=== PATIENT | female | born 1970 | race Caucasian/White ===

== ENCOUNTER 2016-05-07 19:55 | Observation (INO) | payer OTHER ==
[~2016-05-07] VITALS: Ht 152.4 cm; Wt 90.0 kg
[~2016-05-07 19:55] MED LIST: LORTA5 PO
[2016-05-07 19:59] VITALS: BP 156/72; PULSE 88; RESP 16; TEMP 98.3; O2SAT 97
[2016-05-07 20:06] VITALS: BP 192/126; PULSE 84; RESP 15; TEMP 98.5; O2SAT 98
[2016-05-07 20:25] VITALS: BP 191/88; PULSE 80; RESP 17; O2SAT 100
--- NOTE | 2016-05-07 20:35 | RADRPT ---
EXAM DATE/TIME: 05/07/2016 20:22 [facility] COMPARISON: No previous studies available for comparison. INDICATIONS : Weakness MEDICAL HISTORY : None. SURGICAL HISTORY : Shunt placement ENCOUNTER: Initial ACUITY: 1 day PAIN SCORE: 0/10 LOCATION: Bilateral chest FINDINGS: A single view of the chest demonstrates the lungs to be symmetrically aerated without evidence of mas s, infiltrate or effusion. There is mild compensated cardiomegaly . Osseous structures are intact. CONCLUSION: Mild compensated cardiomegaly otherwise negative. Linden Thomas MD FACR on May 07, 2016 at 20:33 Board Certified Radiologist. This report was verified electronically.
--- NOTE | 2016-05-07 20:41 | RADRPT ---
EXAM DATE/TIME: 05/07/2016 20:23 [facility] COMPARISON: CT BRAIN W/O CONTRAST, May 13, 2013, 11:44. INDICATIONS : Altered mental status. RADIATION DOSE: 42.43 CTDIvol (mGy) MEDICAL HISTORY : Seizures. SURGICAL HISTORY : SERICULTURE TEACHER shunt. ENCOUNTER: Initial ACUITY: 1 day PAIN SCALE: 0/10 LOCATION: cranial TECHNIQUE: Multiple contiguous axial images were obtained of the head. Using automated exposure control and adjustment of the mA and/or kV according to patient size, radiation dose was kept as low as reasonably achievable to obtain optimal diagnostic quality images. FINDINGS: Shunt is seen entering from the right crossing midline. The ventricles are small but unchanged from the comparison study. There is no parenchymal hemorrhage, mass effect or acute infraction. The post erior fossa is unremarkable. Minimal calcifications are seen in the brain stem. Otherwise, the posterior fossa is unremarkable. CONCLUSION: Stable non-contrast axial head CT. Linden Thomas MD FACR on May 07, 2016 at 20:34 Board Certified Radiologist. This report was verified electronically.
--- NOTE | 2016-05-07 20:56 | PD ---
HPI Chief Complaint: Numbness/Tingling Time Seen by Provider: 20:25 Travel History International Travel<30 days: No Contact w/Intl Traveler<30days: No Traveled to known affect area: No History of Present Illness HPI The patient is 46 year old female who presents to the [facility] emergency department with a history of reportedly noticing that she did not feel well earlier this morning. She reports that the onset was just after awakening sometime between 7:30 and 8:30 AM. She reports that she felt lethargic/much sleepier than usual. The patient reports that she was able to go to [facility]. She reports that she did earlier today also have numbness either and one of her arms or both of her arms. She reports that this point she cannot exactly recall. The patient does report having some short-term memory problems related to a history of brain cancer status post resection and obstructive hydrocephalus that is supposed TUGBOAT CAPTAIN shunt placement. According to the record it appears that the patient last had her shunt revised by her neurosurgeon, Dr. Palomo in April 2013. The patient denies at this point having any numbness or tingling to her arms or legs. She denies having any fevers or chills. She denies having any cough or congestion. The patient denies any history of neck pain, chest pain, shortness of breath, abdominal pain, vomiting, diarrhea, urinary symptoms, or other neurologic symptoms. The patient's then arrived at her bedside and reports that he was told by his mother that the patient began to have symptoms earlier in the day of right lower extremity numbness and tingling. The patient then went to take a nap. When she got up from the nap, she then noticed that she had right upper extremity numbness and tingling. He reports that he came home around 7:30 PM, and then noticed that she had slurred speech. All other symptoms have resolved prior to arrival. [facility] Past Medical History Narrative Medical The patient's past medical history is significant for a history of brain carcinoma, diagnosed at 17 years of age, status post radiation therapy, status post TUGBOAT CAPTAIN shunt placement and numerous revisions, most recently according to the record in April 2013. She cannot recall when she last saw Dr. Palomo. She is unsure who her primary care physician is. On reviewing the electronic medical record, the patient does also have a history of headaches and seizure activity. Asthma: No Blood Disorders: No Heart Rhythm Problems: No Cancer: No Cardiovascular Problems: No High Cholesterol: No Chemotherapy: No Chest Pain: No Congestive Heart Failure: No COPD: No Cerebrovascular Accident: No Diminished Hearing: No Endocrine: No Genitourinary: No Headaches: Yes Hypertension: No Immune Disorder: No Musculoskeletal: No Neurologic: Yes (HISTORY OF BRAIN TUMOR - 14 REVISIONS OF TUGBOAT CAPTAIN SHUNT - LAST REVISION [id number] B) Psychiatric: No Reproductive: No Respiratory: No Myocardial Infarction: No Radiation Therapy: Yes Seizures: Yes Sleep Apnea: No Past Surgical History Narrative Surgical The patient's past surgical history is significant for the patient placement and revisions, prior pilonidal cyst resection. Abdominal Surgery: No AICD: No Arteriovenous Shunt: No Body Medical Devices: TUGBOAT CAPTAIN SHUNT Cardiac Surgery: No Ear Surgery: No Endocrine Surgery: No Eye Surgery: No Genitourinary Surgery: No Gynecologic Surgery: No Insulin Pump: No Joint Replacement: No Neurologic Surgery: Yes (PT. HAS A HISTORY OF BRAIN TUMOR - SHRUNK WITH RADIATION - TUGBOAT CAPTAIN SHUNT IN PLAC) Oral Surgery: No Pacemaker: No Thoracic Surgery: No Other Surgery: Yes (10 BRAIN SURGERIES HYDROCEPHALIC WITH SHUNT PILONIDAL CYST NECK CYST) Social History Alcohol Use: No Tobacco Use: No Substance Use: No Allergies-Medications (Allergen,Severity, Reaction): Coded Allergies: No Known Allergies (Verified , 05/07/16) Reported Meds & Prescriptions Reported Meds & Active Scripts Active Reported Lortab 5/325 Tab (Hydrocodone-Acetaminophen) 1 Tab Tab 1 Tab PO Q4 PRN Review of Systems Except as stated in HPI: all other systems reviewed are Neg General / Constitutional: No: Fever Eyes: No: Visual changes HENT: No: Headaches Cardiovascular: No: Chest Pain or Discomfort Respiratory: No: Shortness of Breath Gastrointestinal: No: Abdominal Pain Genitourinary: No: Dysuria Musculoskeletal: No: Pain Skin: No Rash Neurologic: Positive: Weakness, Focal Abnormalities, Headache, Change in Mentation, Slurred Speech, Paresthesia, Sensory Disturbance Psychiatric: No: Depression Endocrine: No: Polydipsia Hematologic/Lymphatic: No: Easy Bruising Physical Exam Narrative General: The patient is a well-developed well-nourished female in no acute distress.. Head and Neck exam: Head is normocephalic atraumatic. Eyes: Pupils are equal round and reactive to light. Nose: Midline septum with pink mucous membranes Mouth: Dentition unremarkable. Moist mucus membranes. Posterior oropharynx is not erythematous. No tonsillar hypertrophy. Uvula midline. Airway patent. Neck: No palpable lymphadenopathy. No nuchal rigidity. No thyromegaly. Cardiovascular: Regular rate and rhythm without murmurs, gallops, or rubs. No pulse deficit to the extremities. Lungs: Clear to auscultation bilaterally. No wheezes, rhonchi, or rales. Abdomen: Soft, without tenderness to palpation in all 4 quadrants of the abdomen. No guarding, rebound, or rigidity. Extremities: No clubbing, cyanosis, or edema. 2+ pulses in all 4 extremities. Back: No spinous process tenderness to palpation. No costovertebral angle tenderness to palpation. Neurologic Exam: Cranial nerves 2-12 were intact on exam. Strength is 5/5 in all 4 extremities. No sensory deficits noted. No dysdiadochokinesis. Good finger to nose and Heel to pedroza bilaterally. Skin Exam: No rash noted. Intact skin that is warm and dry. Data Data Last Documented VS Vital Signs Date Time Temp Pulse Resp B/P Pulse Ox O2 Delivery O2 Flow Rate FiO2 05/07/16 21:40 75 18 150/68 92 Room Air 05/07/16 20:06 98.5 Orders Electrocardiogram (05/07/16 20:13) Complete Blood Count With Diff (05/07/16 20:13) Basic Metabolic Panel (Bmp) (05/07/16 20:13) Ckmb (Isoenzyme) Profile (05/07/16 20:13) Troponin I (05/07/16 20:13) Prothrombin Time / Inr (Pt) (05/07/16 20:13) Act Partial Throm Time (Ptt) (05/07/16 20:13) Urinalysis - C+S If Indicated (05/07/16 20:13) Magnesium (Mg) (05/07/16 20:13) Chest, Single Ap (05/07/16 20:13) Iv Access Insert/Monitor (05/07/16 20:13) Ecg Monitoring (05/07/16 20:13) Oximetry (05/07/16 20:13) Ct Brain W/O Iv Contrast(Rout) (05/07/16 20:16) Shunt Series (05/07/16 ) Aspirin Chew (Aspirin Chew) (05/07/16 22:30) Sodium Chlor 0.9% 1000 Ml Inj (Ns 1000 M (05/07/16 22:30) [place] (05/07/16 22:23) Admit Order (Ed Use Only) (05/07/16 22:31) Labs Laboratory Tests Test 05/07/16 05/07/16 20:15 21:40 White Blood Count 9.0 TH/MM3 Red Blood Count 4.49 MIL/MM3 Hemoglobin 11.6 GM/DL Hematocrit 35.8 % Mean Corpuscular Volume 79.6 FL Mean Corpuscular Hemoglobin 25.7 PG Mean Corpuscular Hemoglobin 32.3 % Concent Red Cell Distribution Width 18.2 % Platelet Count 322 TH/MM3 Mean Platelet Volume 8.9 FL Neutrophils (%) (Auto) 60.3 % Lymphocytes (%) (Auto) 28.9 % Monocytes (%) (Auto) 9.0 % Eosinophils (%) (Auto) 1.1 % Basophils (%) (Auto) 0.7 % Neutrophils # (Auto) 5.4 TH/MM3 Lymphocytes # (Auto) 2.6 TH/MM3 Monocytes # (Auto) 0.8 TH/MM3 Eosinophils # (Auto) 0.1 TH/MM3 Basophils # (Auto) 0.1 TH/MM3 CBC Comment DIFF FINAL Differential Comment Prothrombin Time 10.3 SEC Prothromb Time International 0.9 RATIO Ratio Activated Partial 24.0 SEC Thromboplast Time Sodium Level 140 MEQ/L Potassium Level 3.8 MEQ/L Chloride Level 108 MEQ/L Carbon Dioxide Level 24.0 MEQ/L Anion Gap 8 MEQ/L Blood Urea Nitrogen 7 MG/DL Creatinine 1.02 MG/DL Estimat Glomerular Filtration 58 ML/MIN Rate Random Glucose 93 MG/DL Calcium Level 8.5 MG/DL Magnesium Level 2.1 MG/DL Total Creatine Kinase 41 U/L Troponin I LESS THAN 0.02 NG/ML Urine Color LIGHT-YELLOW Urine Turbidity CLEAR Urine pH 7.0 Urine Specific Cameron 1.003 Urine Protein NEG mg/dL Urine Glucose (UA) NEG mg/dL Urine Ketones NEG mg/dL Urine Occult Blood NEG Urine Nitrite NEG Urine Bilirubin NEG Urine Urobilinogen LESS THAN 2.0 MG/DL Urine Leukocyte Esterase NEG Urine Squamous Epithelial 1 /hpf Cells Microscopic Urinalysis Comment CULT NOT INDICATED MDM Medical Decision Making Medical Screen Exam Complete: Yes Emergency Medical Condition: Yes Medical Record Reviewed: Yes Interpretation(s) Last Impressions Head CT 05/07/162015 Signed Impressions: Service Date/Time: Saturday, May 07, 2016 20:23 - CONCLUSION: Stable non-contrast axial head CT. Linden Thomas MD FACR Chest X-Ray 05/07/162012 Signed Impressions: Service Date/Time: Saturday, May 07, 2016 20:22 - CONCLUSION: Mild compensated cardiomegaly otherwise negative. Linden Thomas MD FACR Shunt Study (Imaging) 05/07/16 0000 Signed Impressions: Service Date/Time: Saturday, May 07, 2016 21:18 - CONCLUSION: Intact shunt. Yevgeniy Milner MD Differential Diagnosis TIA, versus recurrence of brain tumor, versus TUGBOAT CAPTAIN shunt malfunction Narrative Course During the course of the patients emergency department visit, the patients history, examination, and differential diagnosis were reviewed with the patient. The patient had IV access obtained and blood work sent for analysis. The patient was placed with the head of the bed flat. The patient was placed on a farm consultant with oximetry and blood pressure monitoring. The patient was started on normal saline at 75 mL per hour. The patient was provided aspirin 324 mg by mouth [address] scan of the brain was read as negative for acute intracranial bleed by the reading radiologist. The patients laboratory studies were reviewed and remarkable for a white count of 9.0, hemoglobin 11.6, platelets 322 with 9.0 monocytes, BmP is remarkable for chloride of 108, creatinine 1.02, magnesium 2.1, CPK 41, troponin I less than 0.02. PT 10.3, INR 0.9, urinalysis is unremarkable. Radiology studies were reviewed and remarkable for a chest x-ray that shows mild compensated cardiomegaly otherwise negative, CT scan of the brain shows a stable noncontrast axial head CT, shunt imaging shows an intact shunt. The patient will be admitted to the hospital for continued evaluation and treatment, close monitoring for possible TIA. The patients results were discussed with the patient, including the plan of care. I explained that further testing and/ or monitoring is indicated based on the patients history, examination, and/ or laboratory findings. Therefore, I recommended admission for additional evaluation. The patient expressed understanding and was agreeable with this plan. The patient was admitted to the hospital in stable condition and sent to a bed under the care of the [facility]. Physician Communication Physician Communication The patient's case was discussed with Dr. Diamond who did agree to admit the patient for further evaluation and treatment at this time. Diagnosis Primary Impression: Transient neurological symptoms Admitting Information Admitting Physician Requests: Observation Vandana Rahman MD May 07, 2016 20:56
[2016-05-07 21:03] LABS: AUTOMATED NEUTROPHIL # 5.4 TH/MM3 (1.8-7.7); BASOPHIL # 0.1 TH/MM3 (0-0.2); BASOPHIL % 0.7 % (0.0-2.0); EOSINOPHIL # 0.1 TH/MM3 (0-0.4); EOSINOPHIL % 1.1 % (0.0-4.0); HEMATOCRIT 35.8 % (35.0-46.0); HEMO FLAGS DIFF FINAL; LYMPH % 28.9 % (9.0-44.0); LYMPHOCYTE # 2.6 TH/MM3 (1.0-4.8); MEAN CELL VOLUME 79.6 FL (80.0-100.0); MEAN CORPUSCULAR HEMOGLOBIN 25.7 PG (27.0-34.0); MEAN CORPUSCULAR HGB CONC 32.3 % (32.0-36.0); NEUT % 60.3 % (16.0-70.0); PLATELET COUNT 322 TH/MM3 (150-450); RED BLOOD COUNT 4.49 MIL/MM3 (4.00-5.30); RED CELL DISTRIBUTION WIDTH 18.2 % (11.6-17.2)
[2016-05-07 21:14] LABS: INTERNATIONAL NORMALIZED RATIO 0.9 RATIO; PROTHROMBIN TIME - PATIENT 10.3 SEC (9.8-11.6)
[2016-05-07 21:25] LABS: ANION GAP 8 MEQ/L (5-15); BLOOD UREA NITROGEN 7 MG/DL (7-18); CHLORIDE 108 MEQ/L (98-107); GLOMERULAR FILTRATION RATE 58 ML/MIN (>89); MAGNESIUM 2.1 MG/DL (1.5-2.5); POTASSIUM 3.8 MEQ/L (3.5-5.1); SODIUM (NA) 140 MEQ/L (136-145)
[2016-05-07 21:31] LABS: CREATINE KINASE 41 U/L (26-192)
[2016-05-07 21:40] VITALS: BP 150/68; PULSE 75; RESP 18; O2SAT 92
[2016-05-07 22:08] LABS: BLOOD, URINE NEG (NEG); GLUCOSE,URINE NEG (NEG); KETONE, URINE NEG (NEG); NITRITE,URINE NEG (NEG); SQUAMOUS EPITHELIAL CELL URINE 1 /hpf (0-5); URINE COLOR LIGHT-YELLOW (YELLW/STRAW)
[2016-05-07 22:10] LABS: COMMENT (UR) CULT NOT INDICATED; CULTURE IF INDICATED CULT NOT INDICATED
--- NOTE | 2016-05-07 22:12 | RADRPT ---
EXAM DATE/TIME: 05/07/2016 21:18 [facility] COMPARISON: No previous studies available for comparison. INDICATIONS : Headache and numbness of the upper extremities. MEDICAL HISTORY : Seizures SURGICAL HISTORY : Ventriculoperitoneal Shunt ENCOUNTER: Initial ACUITY: 1 day PAIN SCORE: 0/10 LOCATION: Bilateral Head neck,chest,or abdomen FINDINGS: Radiograph of the skull, neck, chest and abdomen performed to evaluate shunt patency. The shunt cath eter is seen entering the right frontal region with its tip in the region of the body of the left lat eral ventricle. The catheter is continuous in its course terminating in the right upper quadrant No catheter disrupti on is identified. The visualized heart, lungs and abdominal structures are intact. CONCLUSION: Intact shunt. Yevgeniy Milner MD on May 07, 2016 at 22:09 Board Certified Radiologist. This report was verified electronically.
[2016-05-07] MEDS ORDERED: ASPIRIN 81 MG CHEW TAB CHEW ONE (22:30)
[2016-05-07 22:39] VITALS: BP 139/74; PULSE 72; RESP 15; O2SAT 99
[2016-05-07] MEDS: SODIUM CHLOR 0.9% 1000 ML INJ 1,000 ML IV SCH (22:39)
[2016-05-08 01:03] VITALS: BP 153/63; PULSE 60; RESP 20; TEMP 97.6; O2SAT 96
[2016-05-08 04:22] VITALS: BP 113/60; PULSE 66; RESP 20; TEMP 97.8; O2SAT 97
[2016-05-08 07:50] VITALS: BP 125/70; PULSE 76; RESP 17; TEMP 98; O2SAT 96
[2016-05-08] MEDS ORDERED: INFLUENZA VIRUS VACCINE (QUADRIVALENT) 0.5 ML SYR IM ONE (09:00)
[2016-05-08] MEDS ORDERED: ASPIRIN 81 MG CHEW TAB PO SCH (09:00)
--- NOTE | 2016-05-08 09:21 | MH ---
cc: ISAIAS LOWE M.D. DATE OF ADMISSION: 05/07/2016 ADMISSION DIAGNOSIS 1. Transient neurological symptoms, possible TIA. 2. History of obstructive hydrocephalus with prior numerous revisions of ventriculoperitoneal shunt. 3. History of benign brain tumor as a teenager, treated with radiation therapy. 4. Prior history of generalized seizure disorder but no seizure in several years. PERTINENT HISTORY This is a 46-year-old white female who came to the emergency room yesterday not feeling well. Her onset occurred some time in the morning after waking and she felt a little more lethargic and sleepier than usual. She also earlier in the day had some numbness in either one or both of her arms. She cannot recall. She was having trouble remembering, but she does mention some short-term memory problems. She has a history of obstructive hydrocephalus since she was around [id number] and had a ventriculoperitoneal shunt put in then. The shunt has been revised numerous times. The last time it was revised was in April [address] Palomo. Her clarified some of her symptoms, that she apparently was having some right lower extremity numbness and tingling and went to take a nap and when she got up from the nap she had some right upper extremity numbness and tingling. He also reported that around 7:30 p.m. she had some slight slurred speech. All her symptoms seemed to resolve prior to arrival to the ED. She was seen by Dr. Rahman in the ED. Her CAT scan was negative but Dr. Rahman was concerned for a TIA and she was admitted for observation and MRI of the brain. She has no complaint of headache, no motor weakness, no nausea, vomiting, no fever, chills or sweats, no other symptoms. PAST MEDICAL HISTORY 1. History of what she states was a benign tumor. She was given radiation therapy around 18-19 years of age. She had a ventriculoperitoneal shunt as mentioned with numerous revisions for hydrocephalus that apparently began at age 11. 2. History of generalized seizures. She took Dilantin for awhile but it sounds like she has been off of that for over 20 years. She denies any heart disease, hypertension, diabetes. Denies any liver or kidney disease, ulcer disease, colon disease. No prior stroke. No thyroid problem. No hypertension. No diabetes. PAST SURGICAL HISTORY 1. As mentioned numerous ventriculoperitoneal shunts. 2. Cyst removed from her neck. 3. Pilonidal cyst. ALLERGIES None. MEDICATIONS She is not on any medication at home. FAMILY HISTORY Her father and mother are living. Her mother is 81 and in very good health. Father is 83. He has had prior stroke and has hypertension. SOCIAL HISTORY She has never smoked, does not use alcohol. 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 REVIEW OF SYSTEMS GENERAL: Denies any fever, chills, sweats. HEENT: No vision problem. No sore throat or runny nose. CARDIOVASCULAR: No chest pain, orthopnea, PND. PULMONARY: No cough, hemoptysis, wheezing. GI: No nausea, vomiting, melena, rectal bleeding. : No dysuria, urgency, frequency. SKIN: Without rash. MUSCULOSKELETAL: Without complaints. NEUROLOGIC: As mentioned. PHYSICAL EXAMINATION GENERAL: A pleasant white female in no distress. She seems to be able to answer questions appropriately. VITAL SIGNS: It should be noted that her BP when she first came in to the ED was quite elevated at 192/126, 191/88. It started coming down and most recent check at 4:22 a.m. was 113/60, respirations 20, pulse 66, temperature 97.8. HEENT: Pupils equal. Sclera non-icteric. Nose without lesion. Mouth without inflammation or lesion. NECK: Without bruit. No adenopathy. No thyromegaly. HEART: Regular rate and rhythm. No murmurs or gallops. LUNGS: Clear. ABDOMEN: Soft, nontender, no masses. EXTREMITIES: No edema. Pulses palpated. NEUROLOGIC: She appears oriented. Motor strength is symmetrical. No definite sensory deficits. [id number] testing normal. I did not attempt to walk her. LABORATORY DATA White count is normal at 9.0, hemoglobin 11.6, hematocrit 35.8, platelets 322,000. BMP: Sodium 140, potassium 3.8, chloride 108, CO2 24, BUN 7, creatinine 1.02, GFR 58, glucose 93, calcium 8.5, magnesium 2.1. Troponin less than 0.02. IMAGING DATA A CT brain scan showed what was reported as stable findings. The shunt was seen. The ventricles were not noted to be enlarged. Chest x-ray showed mild compensated cardiomegaly, otherwise negative. A shunt study showed intact shunt. ASSESSMENT As noted. PLAN The patient has been admitted and MRI of the brain has been ordered with MRA and carotid ultrasound. She has been put on aspirin 81 mg a day. No further recommendation at this time. MD COCO Giles/NAYANA /7:22 AM /9:06 AM
--- NOTE | 2016-05-08 09:24 | RADRPT ---
EXAM DATE/TIME: 05/08/2016 08:32 [facility] COMPARISON: No previous studies available for comparison. INDICATIONS : Transient neurologic symptoms. MEDICAL HISTORY : History of brain tumor. Hyocephalic. Seizures. Dizziness. Headaches. SURGICAL HISTORY : 14 Revision of MGMT SPECIALIST shunt. 10 Brain surgeries. Pilonidal cyst. Neck cyst. ENCOUNTER: Initial ACUITY: 1 day PAIN SCORE: 0/10 LOCATION: Bilateral neck PEAK SYSTOLIC VELOCITIES (cm/sec): ICA/CCA RATIO: Right: 1.2 Left: 1.0 ICA: Right: 97 Left: 102 CCA: Right: 84 Left: 104 ECA: Right: 111 Left: 116 VERTEBRAL: Right: 51 antegrade Left: 60 antegrade Elevated flow velocities and ICA/CCA ratios have been found to correlate with increased degrees of vessel stenosis, calculated as percentage of diameter relative to a normal segment of distal ICA/CCA FINDINGS: Ultrasound of the carotid arteries was performed bilaterally using real-time Doppler and color Dopple r imaging. Examination of the right carotid artery demonstrates mild fibrous plaque within the bifurcation. No w aveform abnormalities are identified and no spectral broadening is seen. Examination of the left pham tid artery demonstrates mild fibrous plaque within the bulb. No waveform abnormalities are identified and no spectral broadening is seen. There is antegrade flow in both vertebral arteries. CONCLUSION: No evidence of hemodynamically significant lesion. Gray Valentin MD on May 08, 2016 at 9:22 Board Certified Radiologist. This report was verified electronically.
[2016-05-08 11:45] VITALS: BP 138/64; PULSE 84; RESP 18; TEMP 98; O2SAT 97
[2016-05-08] MEDS: SODIUM CHLOR 0.9% 1000 ML INJ 1,000 ML IV SCH (11:50)
--- NOTE | 2016-05-08 12:58 | RADRPT ---
EXAM DATE/TIME: 05/08/2016 12:04 [facility] COMPARISON: No previous studies available for comparison. INDICATIONS : Check shunt valve setting pre- MRI MEDICAL HISTORY : None. SURGICAL HISTORY : None. ENCOUNTER: Initial ACUITY: 1 day PAIN SCORE: 0/10 LOCATION: Skull FINDINGS: A two view examination of the skull demonstrates no evidence of fracture. The pituitary fossa is nor mal in configuration. No MRI incompatible foreign body is identified.. There is a ENRICHMENT ASSISTANT. shunt in place . The shunt setting appears to be at 70. CONCLUSION: No MRI incompatible foreign body is identified. Shunt setting appears to be at about 70. Frederick Tay MD on May 08, 2016 at 12:52 Board Certified Radiologist. This report was verified electronically.
--- NOTE | 2016-05-08 13:13 | RADRPT ---
EXAM DATE/TIME: 05/08/2016 12:38 [facility] COMPARISON: No previous studies available for comparison. INDICATIONS : TIA. Right sided body numbness. MEDICAL HISTORY : Seizures. Hydrocephalis. Brain mass. SURGICAL HISTORY : REFRACTORY BRICKLAYER shunt placement with multiple revisions. Right femur. ENCOUNTER: Subsequent ACUITY: 2 day PAIN SCORE: 0/10 LOCATION: cranial Please note a normal MRA of the brain does not entirely exclude the possibility of a small aneurysm, nor the possibility of distal intracranial vessel disease. TECHNIQUE: 3D time of flight MRA was performed. Source images, multiplanar STS MIP, and 3D volume MIP reconstru ctions were reviewed. FINDINGS: There is excellent visualization of the major intracranial arteries out to the second-order branch ve ssels. There is no evidence for aneurysm, vessel truncation or stenosis, and no evidence for vascula r malformation. There is a small patent right posterior communicating artery. CONCLUSION: Normal examination for a patient of this age. Frederick Tay MD on May 08, 2016 at 13:10 Board Certified Radiologist. This report was verified electronically.
--- NOTE | 2016-05-08 13:56 | RADRPT ---
EXAM DATE/TIME: 05/08/2016 12:38 [facility] COMPARISON: CT BRAIN W/O CONTRAST, May 07, 2016, 20:23. INDICATIONS : TIA. Right side body weakness. CONTRAST: 19 cc Omniscan (gadodiamide) IV MEDICAL HISTORY : Seizures. Hydrocephalus. Brain mass. SURGICAL HISTORY : PROCESS LINE OPERATOR shunt placement with multiple revisions. Right femur. ENCOUNTER: Subsequent ACUITY: 2 day PAIN SCORE: 0/10 LOCATION: cranial TECHNIQUE: Multiplanar, multisequence MRI of the brain was performed both prior to and following the administrat ion of paramagnetic contrast. FINDINGS: CEREBRUM: The ventricles are decompressed. There is a right ventricular shunt in place.. No evidence of midlin e shift, mass lesion, hemorrhage or acute infarction. No extraaxial fluid collections are seen. The pituitary gland and suprasellar cistern are normal in configuration. WHITE MATTER: No significant signal abnormalities are seen in the white matter. There are postsurgical changes rela donald to PROCESS LINE OPERATOR shunt. POSTERIOR FOSSA: The cerebellum and brainstem are intact. The 4th ventricle is midline. The cerebellopontine angle is unremarkable. The cerebellar tonsils are normal in position. DIFFUSION IMAGING: No focal areas of restricted diffusion are seen. No evidence of acute infarction. EXTRACRANIAL: The visualized portions of the orbits and paranasal sinuses are unremarkable. POST-CONTRAST: No abnormal areas of parenchymal or dural enhancement. No evidence of blood-brain barrier breakdown. No enhancing mass occupying lesions are demonstrated. CONCLUSION: Unremarkable MRI of the brain in this patient with a right-sided PROCESS LINE OPERATOR shunt. Frederick Tay MD on May 08, 2016 at 13:49 Board Certified Radiologist. This report was verified electronically.
--- NOTE | 2016-05-08 15:18 | RADRPT ---
EXAM DATE/TIME: 05/08/2016 14:04 [facility] COMPARISON: SHUNT SERIES, May 07, 2016, 21:18. SCREENING PRE MR SKULL LTD, May 08, 2016, 12:04. INDICATIONS : Check shunt settings post MRI. 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 The post shunt pressure setting is approximately 90 CONCLUSION: There appears to be a slight increase in the pressure setting on the post MRI images. Frederick Tay MD on May 08, 2016 at 15:09 Board Certified Radiologist. This report was verified electronically.
[2016-05-08 15:41] VITALS: BP 135/66; PULSE 82; RESP 18; TEMP 98.2; O2SAT 95
[2016-05-08] MEDS ORDERED: GADODIAMIDE PF 287 MG/ML 20 ML VIAL (for RAD MRI) IV ONE (17:57)
--- NOTE | 2016-05-08 19:30 | EKG ---
Date Performed: 05/07/2016 Time Performed: 20:40:47 PTAGE: 46 years EKG: Sinus rhythm WITH SINUS ARRHYTHMIA NORMAL ECG PREVIOUS TRACING : 07/28/1999 07.49 DOCTOR: Talib Antoine Interpretating Date/Time 05/08/2016 19:27:37
[2016-05-08] MEDS ORDERED: Aspirin Chew PO (19:39)
--- NOTE | 2016-05-08 19:44 | HHI.PR ---
Subjective Remarks No new complaints. requesting discharge to home this evening. denies numbness or tingling at extremities Objective Vitals Vital Signs Date Time Temp Pulse Resp B/P Pulse Ox O2 Delivery O2 Flow Rate FiO2 05/08/16 15:41 98.2 82 18 135/66 95 05/08/16 11:45 98.0 84 18 138/64 97 05/08/16 07:50 98.0 76 17 125/70 96 05/08/16 04:22 97.8 66 20 113/60 97 05/08/16 01:03 97.6 60 20 153/63 96 05/07/16 22:39 72 15 139/74 99 Room Air 05/07/16 21:40 75 18 150/68 92 Room Air 05/07/16 20:25 80 17 191/88 100 Room Air 05/07/16 20:06 98.5 84 15 192/126 98 05/07/16 20:05 16 98 05/07/16 19:59 98.3 88 16 156/72 97 Room Air Result Diagram: 05/07/16201405/07/162014 Imaging Last Impressions Skull X-Ray 05/08/16 0000 Signed Impressions: Service Date/Time: Sunday, May 08, 2016 14:04 - CONCLUSION: There appears to be a slight increase in the pressure setting on the post MRI images. Frederick Tay MD Head Magnetic Resonance Angiography 05/08/16 0000 Signed Impressions: Service Date/Time: Sunday, May 08, 2016 12:38 - CONCLUSION: Normal examination for a patient of this age. Frederick Tay MD Carotid Artery Ultrasound 05/08/16 0000 Signed Impressions: Service Date/Time: Sunday, May 08, 2016 08:32 - CONCLUSION: No evidence of hemodynamically significant lesion. 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 Frederick Tay MD Head CT 05/07/16 2016 Signed Impressions: Service Date/Time: Saturday, May 07, 2016 20:23 - CONCLUSION: Stable non-contrast axial head CT. Linden Thomas MD FACR Chest X-Ray 05/07/162012 Signed Impressions: Service Date/Time: Saturday, May 07, 2016 20:22 - CONCLUSION: Mild compensated cardiomegaly otherwise negative. Linden Thomas MD FACR Shunt Study (Imaging) 05/07/16 0000 Signed Impressions: Service Date/Time: Saturday, May 07, 2016 21:18 - CONCLUSION: Intact shunt. Yevgeniy Milner MD Objective Remarks GENERAL: This is a well-nourished, well-developed patient, in no apparent distress. CARDIOVASCULAR: Regular rate and rhythm without murmurs, gallops, or rubs. RESPIRATORY: Clear to auscultation. Breath sounds equal bilaterally. No wheezes , rales, or rhonchi. GASTROINTESTINAL: Abdomen soft, non-tender, nondistended. Normal active bowel sounds MUSCULOSKELETAL: Extremities without clubbing, cyanosis, or edema. NEURO: Alert & Oriented x4 to person, place, time, situation. Moves all ext x4 A/P Problem List: (1) Transient neurological symptoms Status: Acute Plan: - MRI brain (05/08/16) --> NO acute findings - carotid US (05/08/16) --> no hemodynamically significant stenosis - MRA brain (05/08/16) --> NO acute findings - f/u with PCP, Dr. Alanis in 1 week - f/u with Neurosurgeon, Dr. Palomo in [address] Palomo placed previous shunt. - f/u with Neurology, Dr. Elijah Subramanian, physician known to family - ASA 81mg PO daily - see discharge orders Jose G Restrepo DO May 08, 2016 19:44
[2016-05-08 20:39] VITALS: BP 131/69; PULSE 75; RESP 20; TEMP 97.7; O2SAT 98
[2016-05-09] MEDS ORDERED: ASPI81CH7 PO (09:27)
[2016-05-29] MEDS ORDERED: QUADMIS (14:03)
[2016-05-29] MEDS ORDERED: WHEEMIS3 (14:03)
[2016-05-29] MEDS ORDERED: COMMODE 3-IN-11 MIS (14:03)
[2016-06-08] MEDS ORDERED: DEPA500T3 PO (09:31)
[2016-06-08] MEDS ORDERED: APIX5TAB PO (09:31)
== END 2016-05-09 00:04 | disposition home or self-care (01) ==
LOC: NEPE 19:55 → NEDA 22:33 → NEPHCDU 05-08 01:06
PROVIDERS: ADMIT Hospitalist; ATTEND Hospitalist
DX: R29.90 Unspecified symptoms and signs involving the nervous system (principal); R53.83 Other fatigue; G91.1 Obstructive hydrocephalus; Z98.2 Presence of cerebrospinal fluid drainage device; Z85.841 Personal history of malignant neoplasm of brain; R20.2 Paresthesia of skin; R47.81 Slurred speech; R56.9 Unspecified convulsions; I51.7 Cardiomegaly; Z79.82 Long term (current) use of aspirin
CPT/HCPCS: 70250; 70450; 70544; 70553; 71010; 72040; 74000; 80048; 81001; 82550; 83735; 84484; 85025; 85610; 85730; 93005; 93880; 99285; A9579; G0378; J7030; 70552

== ENCOUNTER 2016-05-09 09:14 | Inpatient (IN) | payer OTHER ==
[2016-05-09] VITALS (11 sets, daily range): BP systolic 117–142; BP diastolic 60–77; PULSE 58–75; RESP 16–18; TEMP 98.3–98.8; O2SAT 96–99
[~2016-05-09] VITALS: Ht 149.9 cm; Wt 65.0 kg
[~2016-05-09 09:14] MED LIST changes: +Aspirin Chew PO; -LORTA5 PO
--- NOTE | 2016-05-09 09:19 | PD ---
HPI Chief Complaint: right-sided weakness Time Seen by Provider: 09:19 Travel History International Travel<30 days: No Contact w/Intl Traveler<30days: No Traveled to known affect area: No History of Present Illness HPI 46-year-old female came to the emergency room brought by EMS for right upper and lower extremity weakness and facial droop on the right side. Her brother is here and says that patient was admitted in the hospital 2 days ago for similar symptoms and was discharged yesterday. He saw her last at 11 PM because her brought her to his house since her thought she was still weak. 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 She was talking normal at that time and that was the last time he saw her normal. Her probably put her to bed at 11:30 to 12 and she was still her baseline at that point. She woke up at 3 in the morning and her noticed that she was stumbling and weak on the right side. However patient refused to come to the emergency room at that point. This morning when she was awake her weakness had worsened and her called 911. Patient is not complaining of any pain. She has a dysarthria. Vital signs are stable otherwise. 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 She has had multiple revisions of the SECRETARY OF STATE shunt since then. Usually when the shunt is malfunctioning she presents with drowsiness and lethargy. [facility] Past Medical History Narrative Medical List of her past medical history is reviewed from the nursing note. Asthma: No Blood Disorders: No Heart Rhythm Problems: No Cancer: No Cardiovascular Problems: No High Cholesterol: No Chemotherapy: No Chest Pain: No Congestive Heart Failure: No COPD: No Cerebrovascular Accident: No Diminished Hearing: No Endocrine: No Genitourinary: No Headaches: Yes Hypertension: No Immune Disorder: No Implanted Vascular Access Dvce: Yes Musculoskeletal: No Neurologic: Yes (HISTORY OF BRAIN TUMOR - 14 REVISIONS OF SECRETARY OF STATE SHUNT - LAST REVISION [id number] B) Psychiatric: No Reproductive: No Respiratory: No Myocardial Infarction: No Radiation Therapy: Yes Seizures: Yes Sleep Apnea: No Past Surgical History Abdominal Surgery: No AICD: No Arteriovenous Shunt: No Body Medical Devices: SECRETARY [employer] SHUNT Cardiac Surgery: No Ear Surgery: No Endocrine Surgery: No Eye Surgery: No Genitourinary Surgery: No Gynecologic Surgery: No Insulin Pump: No Joint Replacement: No Neurologic Surgery: Yes (PT. HAS A HISTORY OF BRAIN TUMOR - SHRUNK WITH RADIATION - SECRETARY OF STATE SHUNT IN PLAC) Oral Surgery: No Pacemaker: No Thoracic Surgery: No Other Surgery: Yes (10 BRAIN SURGERIES HYDROCEPHALIC WITH SHUNT PILONIDAL CYST NECK CYST) Social History Alcohol Use: No Tobacco Use: No Substance Use: No Allergies-Medications (Allergen,Severity, Reaction): Coded Allergies: No Known Allergies (Verified , 05/07/16) Comments No known drug allergies. Reported Meds & Prescriptions Reported Meds & Active Scripts Active Reported Aspirin Children's (Aspirin) 81 Mg Chew 81 Mg PO DAILY Narrative Medication List of her home medications reviewed from the nursing note. Review of Systems Except as stated in HPI: all other systems reviewed are Neg Physical Exam Narrative GENERAL: Awake, alert, moderate distress SKIN: Warm and dry. HEAD: Atraumatic. Normocephalic. EYES: Pupils equal and round. No scleral icterus. No injection or drainage. ENT: No nasal bleeding or discharge. Dry mucous membrane, poor dentition, dry lips, halitosis NECK: Trachea midline. No JVD. CARDIOVASCULAR: Regular rate and rhythm. No murmur appreciated. RESPIRATORY: No accessory muscle use. Clear to auscultation. Breath sounds equal bilaterally. GASTROINTESTINAL: Abdomen soft, non-tender, nondistended. Hepatic and splenic margins not palpable. MUSCULOSKELETAL: No obvious deformities. No clubbing. No cyanosis. No edema. NEUROLOGICAL: Awake and alert. Right facial droop, right upper extremity weakness with strength of 3 out of 5, right lower extremity weakness strength 2 out of 5. Left upper and lower extremity strength is 4 out of 5. Right upper extremity ataxia on finger-nose test. Mild dysarthria. NIH stroke score of 8. PSYCHIATRIC: Appropriate mood and affect; insight and judgment normal. Data Data Last Documented VS Vital Signs Date Time Temp Pulse Resp B/P Pulse Ox O2 Delivery O2 Flow Rate FiO2 05/09/16 11:10 Room Air 05/09/16 11:00 58 16 119/60 98 05/09/16 10:31 98.6 Orders Electrocardiogram (05/09/16 09:30) Prothrombin Time / Inr (Pt) (05/09/16 09:30) Act Partial Throm Time (Ptt) (05/09/16 09:30) Complete Blood Count With Diff (05/09/16 09:30) Basic Metabolic Panel (Bmp) (05/09/16 09:30) Creatine Kinase (Cpk) (05/09/16 09:30) Drug Screen, Random Urine (05/09/16 09:30) Troponin I (05/09/16 09:30) Urinalysis - C+S If Indicated (05/09/16 09:30) Ct Brain W/O Iv Contrast(Rout) (05/09/16 09:30) Chest, Single Ap (05/09/16 09:30) Ecg Monitoring (05/09/16 09:30) Iv Access Insert/Monitor (05/09/16 09:30) Oximetry (05/09/16 09:30) Sodium Chloride 0.9% Flush (Ns Flush) (05/09/16 09:30) Sodium Chlorid 0.9% 500 Ml Inj (Ns 500 M (05/09/16 09:30) Mri Brain W&W/O Contrast (05/09/16 ) Skull, One View (05/09/16 ) Skull, One View (05/09/16 ) Admit Order (Ed Use Only) (05/09/16 11:12) Labs Laboratory Tests Test 05/09/16 05/09/16 09:30 10:02 Urine Opiates Screen NEG Urine Barbiturates Screen NEG Urine Amphetamines Screen NEG Urine Benzodiazepines Screen NEG Urine Cocaine Screen NEG Urine Cannabinoids Screen NEG White Blood Count 8.8 TH/MM3 Red Blood Count 4.33 MIL/MM3 Hemoglobin 11.0 GM/DL Hematocrit 34.5 % Mean Corpuscular Volume 79.7 FL Mean Corpuscular Hemoglobin 25.5 PG Mean Corpuscular Hemoglobin 31.9 % Concent Red Cell Distribution Width 18.2 % Platelet Count 296 TH/MM3 Mean Platelet Volume 8.9 FL Neutrophils (%) (Auto) 69.8 % Lymphocytes (%) (Auto) 21.0 % Monocytes (%) (Auto) 7.7 % Eosinophils (%) (Auto) 0.7 % Basophils (%) (Auto) 0.8 % Neutrophils # (Auto) 6.1 TH/MM3 Lymphocytes # (Auto) 1.8 TH/MM3 Monocytes # (Auto) 0.7 TH/MM3 Eosinophils # (Auto) 0.1 TH/MM3 Basophils # (Auto) 0.1 TH/MM3 CBC Comment DIFF FINAL Differential Comment Prothrombin Time 10.2 SEC Prothromb Time International 0.9 RATIO Ratio Activated Partial 20.3 SEC Thromboplast Time Sodium Level 139 MEQ/L Potassium Level 4.2 MEQ/L Chloride Level 107 MEQ/L Carbon Dioxide Level 23.0 MEQ/L Anion Gap 9 MEQ/L Blood Urea Nitrogen 9 MG/DL Creatinine 0.91 MG/DL Estimat Glomerular Filtration 66 ML/MIN Rate Random Glucose 88 MG/DL Calcium Level 8.5 MG/DL Total Creatine Kinase 41 U/L Troponin I LESS THAN 0.02 NG/ML MDM Medical Decision Making Medical Screen Exam Complete: Yes Emergency Medical Condition: Yes Medical Record Reviewed: Yes Interpretation(s) Twelve-lead EKG was reviewed by me. Normal sinus rhythm, left axis deviation, bradycardia, nonspecific ST-T wave changes. Heart rate of 56 bpm. Differential Diagnosis CVA, brain tumor, hemorrhagic stroke, shunt malfunctioning. Narrative Course 10:[address] is negative. I spoke with Dr. Echevarria from neurology. Listening to the current presentation and the recent previous hospitalization he thought that patient qualifies for a repeat MRI with and without contrast which has been ordered. Chemistry is pending. But rest of the blood test results are back and within normal limit. Patient will require hospitalization again. I have kept her brother and her who joined us later informed and let them know about the plan. Her recurrent presentation is baffling to me given completely normal MRI with and without contrast, MRA, ultrasound of the carotids and shunt study that was done just 2 days ago. However her presentation and unilateral weakness is very concerning and is CVA until proven otherwise. I have asked Dr. Echevarria to come and see the patient as well in the emergency room. Since she was last seen normal at 11:30 last night before going to bed the onset cannot be determined but certainly longer than 4 and half hours and hence patient is not a TPA candidate. Procedures EKG Prior to Arrival: No Physician Communication Physician Communication Dr. Echevarria Diagnosis Primary Impression: CVA (cerebral vascular accident) Qualified Code: I63.9 - Cerebrovascular accident (CVA), unspecified mechanism Admitting Information Admitting Physician Requests: Admit Nena Meza MD May 09, 2016 09:19
[2016-05-09] MEDS ORDERED: ASPI81CH7 PO (09:27)
[2016-05-09] MEDS ORDERED: SODIUM CHLORIDE 0.9% FLUSH 5 ML FLUSH IVF PRN (09:30)
[2016-05-09] MEDS ORDERED: SODIUM CHLORID 0.9% 500 ML INJ 500 ML IV ONE (09:30)
--- NOTE | 2016-05-09 10:06 | RADRPT ---
EXAM DATE/TIME: 05/09/2016 09:36 [facility] COMPARISON: MRI BRAIN W & W/O CONTRAST, May 08, 2016, 12:38. CT BRAIN W/O CONTRAST, May 07, 2016, 20:23 . INDICATIONS : Right arm and leg weakness since 3 am. RADIATION DOSE: 56.35 CTDIvol (mGy) MEDICAL HISTORY : Seizures. History of brain tumor decreased with radiation. 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 Using automated exposure control and adj ustment of the mA and/or kV according to patient size, radiation dose was kept as low as reasonably a chievable to obtain optimal diagnostic quality images. FINDINGS: CEREBRUM: The ventricles are are small in shunt and stable. Shunt catheter enters the right high convexity ante rior parietal bone and there may be an abandoned shunt ostomy in the posterior high convexity right p arietal bone. No evidence of midline shift, mass lesion, hemorrhage or acute infarction. Stable area encephalomalacia changes in the anterior high convexity left parietal lobe representing old infarct or prior region of radiosurgery. No extra-axial fluid collections are seen. POSTERIOR FOSSA: The cerebellum and brainstem are intact. The 4th ventricle is midline. The cerebellopontine angle i s unremarkable. EXTRACRANIAL: The visualized portion of the orbits is intact. SKULL: The calvaria is intact. No evidence of skull fracture. Stable endosteal prominence predominantly adilia ng the right high convexity parietal bone. CONCLUSION: 1. Stable examination with focal encephalomalacia in the high left convexity anterior parietal lobe c haracteristic of an old infarct or radiosurgery bed. 2. Stable position of shunt tubing which enters the right high convexity anterior parietal bone. Ve ntricles remain small but stable. 3. Nothing acute. Moris Briggs MD on May 09, 2016 at 9:47 Board Certified Radiologist. This report was verified electronically.
[2016-05-09 10:15] LABS: AUTOMATED NEUTROPHIL # 6.1 TH/MM3 (1.8-7.7); BASOPHIL # 0.1 TH/MM3 (0-0.2); BASOPHIL % 0.8 % (0.0-2.0); EOSINOPHIL # 0.1 TH/MM3 (0-0.4); EOSINOPHIL % 0.7 % (0.0-4.0); HEMATOCRIT 34.5 % (35.0-46.0); HEMO FLAGS DIFF FINAL; LYMPHOCYTE # 1.8 TH/MM3 (1.0-4.8); MEAN CELL VOLUME 79.7 FL (80.0-100.0); MEAN CORPUSCULAR HEMOGLOBIN 25.5 PG (27.0-34.0); MEAN CORPUSCULAR HGB CONC 31.9 % (32.0-36.0); MONO % 7.7 % (0.0-8.0); NEUT % 69.8 % (16.0-70.0); PLATELET COUNT 296 TH/MM3 (150-450); RED BLOOD COUNT 4.33 MIL/MM3 (4.00-5.30); RED CELL DISTRIBUTION WIDTH 18.2 % (11.6-17.2); WHITE BLOOD COUNT 8.8 TH/MM3 (4.0-11.0)
[2016-05-09 10:28] LABS: INTERNATIONAL NORMALIZED RATIO 0.9 RATIO; PROTHROMBIN TIME - PATIENT 10.2 SEC (9.8-11.6)
[2016-05-09 10:29] LABS: APTT (PATIENT) 20.3 SEC (24.3-30.1)
[2016-05-09 10:48] LABS: ANION GAP 9 MEQ/L (5-15); BLOOD UREA NITROGEN 9 MG/DL (7-18); CHLORIDE 107 MEQ/L (98-107); GLOMERULAR FILTRATION RATE 66 ML/MIN (>89); POTASSIUM 4.2 MEQ/L (3.5-5.1); SODIUM (NA) 139 MEQ/L (136-145)
[2016-05-09 10:50] LABS: CREATINE KINASE 41 U/L (26-192)
--- NOTE | 2016-05-09 11:06 | RADRPT ---
EXAM DATE/TIME: 05/09/2016 10:18 [facility] COMPARISON: CHEST SINGLE AP, May 07, 2016, 20:22. 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 The lungs are clear. The costophrenic angles are clear. The patient has a ri ght internal jugular central line in place with its tip overlying the right atrium. There appears to be a second right internal jugular central line. This has a somewhat more wavy course but appears t o still be within the SVC. CONCLUSION: Two right internal jugular central lines as described above. Yevgeniy Carrera MD on May 09, 2016 at 10:53 Board Certified Radiologist. This report was verified electronically.
[2016-05-09] MEDS ORDERED: SODIUM CHLORIDE 0.9% FLUSH 5 ML FLUSH FLUSH PRN (11:30)
[2016-05-09] MEDS ORDERED: ACETAMINOPHEN 325 MG TAB PO PRN (11:30)
[2016-05-09] MEDS ORDERED: MAGNESIUM HYDROXIDE SUSP 30 ML CUP PO PRN (11:30)
[2016-05-09] MEDS ORDERED: NALOXONE HCL 0.4 MG/ML AMP IV PRN (11:30)
[2016-05-09] MEDS ORDERED: DEXT 5%-NACL 0.45% 1000 ML INJ 1,000 ML IV SCH (11:30)
[2016-05-09] MEDS ORDERED: BISACODYL 10 MG SUPP PR PRN (11:30)
[2016-05-09] MEDS ORDERED: ONDANSETRON HCL 4 MG/2 ML VIAL IVP PRN (11:30)
[2016-05-09 11:57] LABS: BLOOD, URINE NEG (NEG); COMMENT (UR) CATH-CULT NOT IND; CULTURE IF INDICATED CATH CULTURE NOT IND; GLUCOSE,URINE NEG (NEG); KETONE, URINE NEG (NEG); NITRITE,URINE NEG (NEG); PH, URINE 6.5 (5.0-8.5); SQUAMOUS EPITHELIAL CELL URINE 5 /hpf (0-5); URINE COLOR LIGHT-YELLOW (YELLW/STRAW)
[2016-05-09 12:11] LABS: AMPHETAMINE, URINE NEG (NEG); BARBITURATES, URINE NEG (NEG); COCAINE, URINE NEG (NEG)
--- NOTE | 2016-05-09 12:19 | HHI.HP ---
HPI Service [facility] Primary Care Physician Davion Galaviz MD Admission Diagnosis CVA Chief Complaint: right sided weakness Travel History International Travel<30 Days: No Contact w/Intl Traveler <30 Da: No Traveled to Known Affected Are: No History of Present Illness Patient has distant history of benign brain tumor. Patient was given radiation therapy around age 19. 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 Patient was admitted to my service yesterday with complaint of numbness in either both or one of her arms. Patient was unable to recall exactly. Patient also complained of yesterday having right lower extremity numbness and tingling and then right upper extremity numbness and tingling. Patient also complained of some slurred speech occurring the evening of May 07. All of the patient' s symptoms had resolved prior to her arrival to the ER yesterday. Patient underwent extensive workup yesterday including CT brain, MRI brain, MRA brain, bilateral carotid ultrasound. All of these studies were negative and the patient was eager for discharge yesterday evening. I saw the patient yesterday evening at approximately 8:30 PM at which time she appeared neurologically intact. Discharge orders were written. This morning the patient's tells me that Ms. Marc was unable to ambulate prior to discharge from [place] and had to be taken to her car by a wheelchair. However , I was not contacted for this. Patient was then brought from the hospital to the home of her [id number] who is an EMT. Patient's [id number]-kio was in the room this morning. He reported to me that he did a brief neurological examination last night and found no focal deficits. Patient's reports that around 3 AM Ms. Marc was having difficulty moving her right arm and right leg and required assistance getting to the bathroom. When patient awoke this morning, her right sided weakness persisted, so patient was brought back to the [facility] ER. Case has been discussed between the ER physician Dr. Meza and Neurology, Dr. Echevarria. Neurology requests repeat MRI of the brain. At the time of my visit with has some dysarthria and right sided weakness. Pt will be admitted to [facility] for further evaluation and treatment. Review of Systems Constitutional: DENIES: Diaphoretic episodes, Fatigue, Fever, Weight gain, Weight loss, Chills, Dizziness, Change in appetite, Night Sweats Endocrine: DENIES: Heat/cold intolerance, Polydipsia, Polyuria, Polyphagia Eyes: DENIES: Blurred vision, Diplopia, Eye inflammation, Eye pain, Vision loss , Photosensitivity, Double Vision Ears, nose, mouth, throat: DENIES: Tinnitus, Hearing loss, Vertigo, Nasal discharge, Oral lesions, Throat pain, Hoarseness, Ear Pain, Running Nose, Epistaxis, Sinus Pain, Toothache, Odynophagia Respiratory: DENIES: Apneas, Cough, Snoring, Wheezing, Hemoptysis, Sputum production, Shortness of breath Cardiovascular: DENIES: Chest pain, Palpitations, Syncope, Dyspnea on Exertion , PND, Lower Extremity Edema, Orthopnea, Claudication Gastrointestinal: DENIES: Abdominal pain, Black stools, Bloody stools, BRB per rectum, Constipation, Diarrhea, GERD, Nausea, Reflux, Vomiting, Difficulty Swallowing, Anorexia Genitourinary: DENIES: Dysmenorrhea, Dyspareunia, Sexual dysfunction, Urinary frequency, Urinary incontinence, Urgency, Hematuria, Dysuria, Nocturia Musculoskeletal: DENIES: Joint pain, Muscle aches, Stiffness, Joint Swelling, Back pain, Neck pain Integumentary: DENIES: Abnormal pigmentation, Pruritus, Rash, Nail changes, Breast masses, Breast skin changes, Nipple discharge Hematologic/lymphatic: DENIES: Bruising, Lymphadenopathy Immunologic/allergic: DENIES: Eczema, Urticaria Neurologic: COMPLAINS OF: Abnormal gait, Localized weakness, DENIES: Headache , Paresthesias, Seizures, Speech Problems, Tremor, Poor Balance Psychiatric: DENIES: Anxiety, Confusion, Mood changes, Depression, Hallucinations, Agitation, Suicidal Ideation, Homicidal Ideation, Delusions, History of Bipolar, History of Schizophrenia Past Family Social History Past Medical History 1) h/o benign brain tumor - s/p radiation therapy - s/p VPS with many revisions for hydrocephalus - last revision of VPS was April [address] Palomo 2) generalized seizures - pt reports that he previously took dilantin, but NOT for the last 20 years Past Surgical History 1) Ventriculoperitoneal shunt with many revisions - last VPS revision [address] 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 SKIN: No rashes, ecchymoses or lesions. Cool and dry. HEAD: Atraumatic. Normocephalic. No temporal or scalp tenderness. EYES: Pupils equal round and reactive. Extraocular motions intact. No scleral icterus. No injection or drainage. ENT: Nose without bleeding, purulent drainage or septal hematoma. Throat without erythema, tonsillar hypertrophy or exudate. Uvula midline. Airway patent. NECK: Trachea midline. No JVD or lymphadenopathy. Supple, nontender, no meningeal signs. CARDIOVASCULAR: Regular rate and rhythm without murmurs, gallops, or rubs. RESPIRATORY: Clear to auscultation. Breath sounds equal bilaterally. No wheezes , rales, or rhonchi. GASTROINTESTINAL: Abdomen soft, non-tender, nondistended. No hepato-splenomegaly , or palpable masses. No guarding. MUSCULOSKELETAL: Extremities without clubbing, cyanosis, or edema. No joint tenderness, effusion, or edema noted. No calf tenderness. Negative Homans sign bilaterally. NEUROLOGICAL: Awake and alert. Cranial nerves II through XII intact. Motor and sensory grossly within normal limits. Five out of 5 muscle strength in all muscle groups. Normal speech. Laboratory Laboratory Tests Test 05/09/16 05/09/16 10:02 11:29 White Blood Count 8.8 Red Blood Count 4.33 Hemoglobin 11.0 Hematocrit 34.5 Mean Corpuscular Volume 79.7 Mean Corpuscular Hemoglobin 25.5 Mean Corpuscular Hemoglobin 31.9 Concent Red Cell Distribution Width 18.2 Platelet Count 296 Mean Platelet Volume 8.9 Neutrophils (%) (Auto) 69.8 Lymphocytes (%) (Auto) 21.0 Monocytes (%) (Auto) 7.7 Eosinophils (%) (Auto) 0.7 Basophils (%) (Auto) 0.8 Neutrophils # (Auto) 6.1 Lymphocytes # (Auto) 1.8 Monocytes # (Auto) 0.7 Eosinophils # (Auto) 0.1 Basophils # (Auto) 0.1 CBC Comment DIFF FINAL Differential Comment Prothrombin Time 10.2 Prothromb Time International 0.9 Ratio Activated Partial 20.3 Thromboplast Time Sodium Level 139 Potassium Level 4.2 Chloride Level 107 Carbon Dioxide Level 23.0 Anion Gap 9 Blood Urea Nitrogen 9 Creatinine 0.91 Estimat Glomerular Filtration 66 Rate Random Glucose 88 Calcium Level 8.5 Total Creatine Kinase 41 Troponin I LESS THAN 0.02 Urine Color LIGHT-YELLOW Urine Turbidity CLEAR Urine pH 6.5 Urine Specific [place] 1.005 Urine Protein NEG Urine Glucose (UA) NEG Urine Ketones NEG Urine Occult Blood NEG Urine Nitrite NEG Urine Bilirubin NEG Urine Urobilinogen LESS THAN 2.0 Urine Leukocyte Esterase NEG Urine WBC LESS THAN 1 Urine Squamous Epithelial 5 Cells Microscopic Urinalysis Comment CATH-CULT NOT IND Result Diagram: 05/09/16 1002 05/09/16 1002 Septic Shock Reassessment Heart: Regular rate and rhythm Lungs: Clear Skin: Warm Peripheral Pulses: Bounding Right Radial Bounding Left Radial Bounding Right Popliteal Bounding Left Popliteal Bounding Right Dorsalis Pedis Bounding Left Dorsalis Pedis Bounding Right Posterior Tibial Bounding Left Posterior Tibial Capillary Refill: Brisk Assessment and Plan Problem List: (1) Acute right-sided weakness Status: Acute Plan: - CT brain (05/07/16) --> no acute findings - MRI brain (05/08/16) --> NO acute findings - MRA brain (05/08/16) --> NO acute findings - b/l Carotid US (05/08/16) --> no acute findings - repeat MRI brain (05/09/16) --> pending - TSH, free T4, B12, folate, RPR --> pending - consult Neurology - Consult Neurosurgery - continue Aspirin 81mg daily - HOB flat - IVFs - observe on telemetry - obtain holter - obtain echocardiogram Physician Certification 2 Midnight Certification Type: Admission for Inpatient Services Order for Inpatient Services The services are ordered in accordance with Medicare regulations or non- Medicare payer requirements, as applicable. In the case of services not specified as inpatient-only, they are appropriately provided as inpatient services in accordance with the 2-midnight benchmark. Estimated LOS (days): 3 3 days is the estimated time the patient will need to remain in the hospital, assuming treatment plan goals are met and no additional complications. Post-Hospital Plan: Not yet determined Jose G Restrepo DO May 09, 2016 12:19
--- NOTE | 2016-05-09 12:26 | RADRPT ---
EXAM DATE/TIME: 05/09/2016 11:21 CORRECTION Corrected on: May 10, 2016; [facility] COMPARISON: SKULL (1VW), May 13, 2013, 11:22. INDICATIONS : Pre mri shunt setting MEDICAL HISTORY : seizures, brain tumor SURGICAL HISTORY : shunt ENCOUNTER: Initial ACUITY: 1 day PAIN SCORE: Non-responsive. LOCATION: Bilateral cranial FINDINGS: A lateral view of the skull has been obtained. The pressure appears to correspond to 80-90 mm H2O. CONCLUSION: The pressure appears to correspond to 80-90 mm H2O. Yevgeniy Carrera MD on May 09, 2016 at 12:19 Board Certified Radiologist. This report was verified electronically. Yevgeniy Carrera MD on May 10, 2016 at 18:11 Board Certified Radiologist. This report was verified electronically.
[2016-05-09] MEDS ORDERED: ENALAPRILAT 1.25 MG/ML VIAL IV PRN (12:30)
[2016-05-09] MEDS ORDERED: LABETALOL HCL 100 MG/20 ML VIAL IV PRN (12:30)
[2016-05-09] MEDS ORDERED: GADODIAMIDE PF 287 MG/ML 20 ML VIAL (for RAD MRI) IV ONE (12:38)
--- NOTE | 2016-05-09 13:34 | RADRPT ---
EXAM DATE/TIME: 05/09/2016 12:01 [facility] COMPARISON: CT BRAIN W/O CONTRAST, May 07, 2016, 20:23. MRI BRAIN W & W/O CONTRAST, May 08, 2016, 12:38. INDICATIONS: Right sided paralysis. CONTRAST: 19 cc Omniscan (gadodiamide) IV MEDICAL HISTORY: Brain tumor. Hydrocephalus. SURGICAL HISTORY: Shunt in brain. ENCOUNTER: Initial ACUITY: 2 day PAIN SCORE: 0/10 LOCATION: Head TECHNIQUE: Multiplanar, multisequence MRI of the brain was performed both prior to and following the administrat ion of paramagnetic contrast. FINDINGS: The patient has a ventriculostomy tube in place from the right frontal approach. The ventricles are normal in size. No extraaxial fluid collections, areas of hemorrhage or acute infarction or mass eff ect is seen. There do appear to be areas of suspected encephalomalacia at the medial left frontal lo be and at the right temporal occipital region. There is some mild increased signal in the periventri cular regions especially posteriorly. There does appear to be some atrophy of the corpus callosum. The pituitary and suprasellar regions are normal. No abnormal areas of enhancement are seen. CONCLUSION: 1. No acute abnormality is seen. 2. Ventriculostomy tube in place from the right frontal approach. 3. Areas of encephalomalacia at the left medial frontal lobe and at the right posterior temporal occ ipital regions. 4. No areas of acute hemorrhage, mass effect or infarction are seen. Yevgeniy Carrera MD on May 09, 2016 at 13:04 Board Certified Radiologist. This report was verified electronically.
--- NOTE | 2016-05-09 13:51 | RADRPT ---
EXAM DATE/TIME: 05/09/2016 12:35 [facility] COMPARISON: SKULL (1VW), May 09, 2016, 11:21. INDICATIONS : Post MRI check shunt valve MEDICAL HISTORY : Brain tumor SURGICAL HISTORY : Shunt placement ENCOUNTER: Initial ACUITY: 1 day PAIN SCORE: 0/10 LOCATION: Skull FINDINGS: A lateral view of the skull reveals a marker for shunt tubing. The valve setting appears to be at 110 mm H2O. CONCLUSION: The valve setting appears to be at 110 mm H2O. Yevgeniy Carrera MD on May 09, 2016 at 13:47 Board Certified Radiologist. This report was verified electronically.
--- NOTE | 2016-05-09 15:25 | PD.CONS ---
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 Post operatively she developed hydrocephalus and generalized seizures. 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, does not smoke or drink Physical Exam Vital Signs Vital Signs Date Time Temp Pulse Resp B/P Pulse Ox O2 Delivery O2 Flow Rate FiO2 05/09/16 10:31 98.6 62 16 130/63 98 Room Air 05/09/16 09:35 16 142/77 99 Room Air 05/09/16 09:32 66 16 142/77 99 Physical Exam Awake but lethargic, speech appropriate, oriented to exact place and date, as well as the events, Pupils are 2mm equal, EOMI, neck supple Skin hyperpigmented on the neck, no rash, no bruising Motor 5/5 in the left delt/bic/tri/IO/HF/Quad/ant tib and gastroc Motor 1/5 in the right delt and hip flexor but fernanda to use the opponens and wrists on the right as well as the right quad 3/5. No spasticity, no clonus, no Babinski. Laboratory Laboratory Tests Test 05/09/16 05/09/16 05/09/16 09:30 10:02 11:29 Urine Opiates Screen NEG Urine Barbiturates Screen NEG Urine Amphetamines Screen NEG Urine Benzodiazepines Screen NEG Urine Cocaine Screen NEG Urine Cannabinoids Screen NEG White Blood Count 8.8 Red Blood Count 4.33 Hemoglobin 11.0 Hematocrit 34.5 Mean Corpuscular Volume 79.7 Mean Corpuscular Hemoglobin 25.5 Mean Corpuscular Hemoglobin 31.9 Concent Red Cell Distribution Width 18.2 Platelet Count 296 Mean Platelet Volume 8.9 Neutrophils (%) (Auto) 69.8 Lymphocytes (%) (Auto) 21.0 Monocytes (%) (Auto) 7.7 Eosinophils (%) (Auto) 0.7 Basophils (%) (Auto) 0.8 Neutrophils # (Auto) 6.1 Lymphocytes # (Auto) 1.8 Monocytes # (Auto) 0.7 Eosinophils # (Auto) 0.1 Basophils # (Auto) 0.1 CBC Comment DIFF FINAL Differential Comment Prothrombin Time 10.2 Prothromb Time International 0.9 Ratio Activated Partial 20.3 Thromboplast Time Sodium Level 139 Potassium Level 4.2 Chloride Level 107 Carbon Dioxide Level 23.0 Anion Gap 9 Blood Urea Nitrogen 9 Creatinine 0.91 Estimat Glomerular Filtration 66 Rate Random Glucose 88 Calcium Level 8.5 Total Creatine Kinase 41 Troponin I LESS THAN 0.02 Urine Color LIGHT-YELLOW Urine Turbidity CLEAR Urine pH 6.5 Urine Specific [place] 1.005 Urine Protein NEG Urine Glucose (UA) NEG Urine Ketones NEG Urine Occult Blood NEG Urine Nitrite NEG Urine Bilirubin NEG Urine Urobilinogen LESS THAN 2.0 Urine Leukocyte Esterase NEG Urine WBC LESS THAN 1 Urine Squamous Epithelial 5 Cells Microscopic Urinalysis Comment CATH-CULT NOT IND Result Diagram: 05/09/16 1002 05/09/16 1002 Imaging Last Impressions Head CT 05/09/16 0930 Signed Impressions: Service Date/Time: Monday, May 09, 2016 09:36 - CONCLUSION: 1. 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 2. Stable position of shunt tubing which enters the right high convexity anterior parietal bone. Ventricles remain small but stable. 3. Nothing acute. Moris Briggs MD Skull X-Ray 05/09/16 0000 Signed Impressions: Service Date/Time: Monday, May 09, 2016 12:35 - CONCLUSION: The valve setting appears to be at 110 mm H2O. Yevgeniy Carrera MD Assessment and Plan Diagnosis: (1) Hydrocephalus Plan: The shunt seems to be working at 80 mmH2O. It was reprogrammed after the MRI (2) post radiation late effects Plan: New right sided weakness associated with fatigue and decreased alertness , wakes and wanes. Seizures, partial are possible. Neurology is consulted. a trial of tegretol or depakote may be helpful. Rehab is consulted. Olayinka Lang May 09, 2016 15:24
[2016-05-09] MEDS: NS + KCL 20 MEQ INJ 1,000 ML IV SCH (16:27)
[2016-05-09 17:06] LABS: FREE T4 0.99 NG/DL (0.76-1.46)
--- NOTE | 2016-05-09 19:33 | MB ---
cc: JESSIE SCHAEFER MD DATE OF CONSULTATION: 05/09/2016 REASON FOR CONSULTATION: Right-sided weakness. HISTORY OF PRESENT ILLNESS The patient is a 46-year-old female who has past medical history of hydrocephalus for which a shunt was placed when she was 12 years of age, at 17 years of age she was diagnosed with a pituitary tumor that was surgically removed followed by radiation therapy at [facility], for one year, then she had several operations for COMMERCIAL LOAN ASSISTANT shunt revision. The CVP shunt was redone several times. The patient was left with no remarkable residual deficits after this extensive neurologic history. The patient was admitted to the [facility] yesterday with numbness in her upper arms and right lower extremity with very mild slurring of speech with resolution of her symptoms when she presented to the emergency room. The patient had undergone an extensive neurologic workup including CT brain, MRI brain, MRA brain, bilateral carotid ultrasound. Those were all reported as unremarkable. The patient was brought back to the emergency room where her states that she was not able to ambulate or turn herself in bed with more pronounced slurred speech. The patient and the deny any headache, double vision, blurred vision, convulsions or loss of consciousness. A repeat MRI of the brain did not reveal any acute intracranial abnormality. REVIEW OF SYSTEMS A 12-point review of systems is negative except for what is stated in the HPI. PAST MEDICAL HISTORY 1. Pituitary tumor status post surgical removal and radiation therapy. 2. Hydrocephalus, COMMERCIAL LOAN ASSISTANT shunt was placed when she was 12, last revision of VPS was done 06/06. She follows up with Dr. Palomo. 3. History of seizures. She is off seizure medication for the last 20 years. PAST SURGICAL HISTORY: 1. COMMERCIAL LOAN ASSISTANT shunt when she was 12. 2. Pituitary surgical removal when she was 17, followed by radiation therapy. MEDICATIONS: Aspirin 81 milligrams. ALLERGIES: No known allergies. FAMILY HISTORY: Parents are both alive. Father with history of stroke and hypertension. SOCIAL HISTORY: She is . 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 She never smoked. No alcohol, no illicit drug use. PHYSICAL EXAMINATION: GENERAL: Awake, oriented, good historian, slurred speech. No apparent distress. HEENT: Atraumatic, normocephalic. Shunt in place on the right parietal region. Intact hearing. Intact vision. Trachea midline. No meningeal signs. No carotid bruits. CARDIOVASCULAR: Regular rate and rhythm without murmurs. RESPIRATORY: Clear to auscultation. No wheezes. MUSCULOSKELETAL: Extremities without clubbing, cyanosis or edema. Moves the left side normally. She is weak on the right upper and lower extremity. NEUROLOGIC: Awake, alert, oriented to time, person and place. Slurred speech. Intact speech content. Intact naming, intact repetition. Right facial palsy, questionable lower motor neuron type with rather weak eye closure. Intact facial sensation. No nystagmus. Pupils equal bilaterally. No diplopia. Tongue is midline, moves freely in the mouth. Normal palate elevation. Mild right facial weakness. MOTOR SYSTEM EXAMINATION: Right shoulder, abduction, elbow extension and wrist extension 3/5. Shoulder adduction, elbow flexion and wrist flexion 4+/5. Right lower extremity, hip flexion, knee extension, and foot dorsiflexion 3/5. The left side is 5/5 upper and lower extremities. Reflexes 1+ bilateral symmetrical, plantars are bilateral downgoing. Sensation is intact bilaterally. No sensory extinction. Cerebellar function on the left side are normal. [id number], [id number] on the right side unable to perform because of the weakness. PSYCHOLOGICAL: Intact behavior. No visual hallucinations. Normal judgment. LABORATORY TESTS: White blood cell count 8.8, hemoglobin 11, MCV 79.7, platelet count 296. INR 0.9. Sodium 4.2, chloride 107, anion gap 9, BUN 9, creatinine 0.91. Calcium 8.5. Random glucose 88. 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 Stable position of shunt tubing which enters the right high complexity anterior parietal bone, ventricles remain small but stable. No acute abnormality is noted. - Brain MRI with and without contrast revealed no acute abnormality. Ventriculostomy tube in place from right frontal approach. Areas of encephalomalacia in the left medial frontal lobe and the right posterior temporal occipital regions. No areas of acute hemorrhage, mass effect or infarction are seen. DIAGNOSTIC IMPRESSION - Right hemiparesis, and facial nerve involvement A possible etiology, venous infarction/left parietal post radiation scar tissue and a small restricted diffusion that is not seen on the MRI at the internal capsule or brain stem. - History of seizures, currently on non-seizure medication. PLAN - Neuro checks q4 hourly, MRV with and without contrast. - EEG. - MRV - Neurosurgery recommendations are appreciated. - Continue aspirin 81 mg daily. - PT, OT recommendations are appreciated. - DVT prophylaxis - GI prophylaxis. Thank you for the opportunity to participate in the care of your patient. MD GIAN Prasad/JOSEPH /5:04 PM /6:37 PM [email or web address]
[2016-05-09] MEDS: SODIUM CHLORIDE 0.9% FLUSH 5 ML FLUSH FLUSH SCH (21:00)
--- NOTE | 2016-05-09 22:03 | MG ---
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 DESCRIPTION: Disorganized type background 6-8 Hz activity, alpha theta. Admixed theta activity, generalized bursts of 2-3 Hz delta activity occurring as well. Broad rhythmic, 5-6 Hz theta activity occurring in the right frontal central region lasting for about 10 seconds, followed by variable alpha frequencies. Limited driving with photic stimulation. A couple of seconds recurrent sharply contoured waveforms C4-P4 epoch 61, high-frequency artifact in the frontal leads occurring off and on. Tiny sharp transients P4, epoch 103 and epoch 112, phase reversal at C4 epoch 127. Single lead EKG showing sinus rhythm. INTERPRETATION Mild encephalopathy, suggestion of cortical irritability, in the right frontal central parietal region. Clinical correlation. Heladio Menjivar MD MG/JOSEPH /8:27 PM /9:48 PM
[2016-05-10] VITALS (7 sets, daily range): BP systolic 97–137; BP diastolic 59–176; PULSE 62–72; RESP 18–20; TEMP 97.5–98.6; O2SAT 95–98
[2016-05-10] MEDS: NS + KCL 20 MEQ INJ 1,000 ML IV SCH (04:20)
[2016-05-10 07:26] LABS: BASOPHIL % 0.3 % (0.0-2.0); EOSINOPHIL % 0.3 % (0.0-4.0); HEMATOCRIT 34.2 % (35.0-46.0); HEMO FLAGS DIFF FINAL; LYMPH % 27.1 % (9.0-44.0); LYMPHOCYTE # 2.5 TH/MM3 (1.0-4.8); MEAN CELL VOLUME 79.4 FL (80.0-100.0); MEAN CORPUSCULAR HEMOGLOBIN 25.4 PG (27.0-34.0); MEAN CORPUSCULAR HGB CONC 31.9 % (32.0-36.0); MONO % 7.6 % (0.0-8.0); NEUT % 64.7 % (16.0-70.0); PLATELET COUNT 293 TH/MM3 (150-450); RED CELL DISTRIBUTION WIDTH 17.7 % (11.6-17.2); WHITE BLOOD COUNT 9.4 TH/MM3 (4.0-11.0)
[2016-05-10 07:54] LABS: BICARBONATE 19.8 MEQ/L (21.0-32.0); POTASSIUM 3.6 MEQ/L (3.5-5.1)
--- NOTE | 2016-05-10 07:54 | EKG ---
Date Performed: 05/09/2016 Time Performed: 10:20:45 PTAGE: 46 years EKG: SINUS BRADYCARDIA Since previous tracing, no significant change noted BORDERLINE ECG PREVIOUS TRACING : 05/07/2016 20.40 DOCTOR: Ivan Rahman Interpretating Date/Time 05/10/2016 07:53:47
[2016-05-10] MEDS: SODIUM CHLORIDE 0.9% FLUSH 5 ML FLUSH FLUSH SCH ×2 (09:00→21:11)
[2016-05-10] MEDS: ASPIRIN EC 81 MG TABEC PO SCH (09:08)
[2016-05-10] MEDS ORDERED: PNEUMOCOCCAL POLYVALENT INJ 25 MCG/0.5 ML SYR IM ONE (10:00)
[2016-05-10] MEDS ORDERED: INFLUENZA VIRUS VACCINE (QUADRIVALENT) 0.5 ML SYR IM ONE (10:00)
--- NOTE | 2016-05-10 11:29 | HHI.NSPN ---
History Chief Complaint: no change Interval History 46 yr old admitted with right sided weakness. The fatigue and weakness are persistent but the leg has improved a little. MRV is pending. her shunt is programmed at 80 mm water. Review of Systems Respiratory: Negative for: shortness of breath, cough, sputum Cardiovascular: Negative for: chest pain, palpitations, orthopnea Gastrointestinal: Negative for: nausea, vomitting, diarrhea, constipation Exam Results Vital Signs Date Time Temp Pulse Resp B/P Pulse Ox O2 Delivery O2 Flow Rate FiO2 05/10/16 08:00 98.4 70 20 118/74 97 05/09/16 15:44 Room Air Physical Examination Awake, lethargic, marked dysarthria, poor intelligibility Pupils equal, right facial weakness, right hand 3/5, right shoulder and hip flexor 2/5 Skin warm and dry Lab, Micro, Other Results Laboratory Tests Test 05/09/16 05/09/16 05/10/16 05/10/16 11:29 15:42 06:51 06:57 Urine Color LIGHT-YELLOW Urine Turbidity CLEAR Urine pH 6.5 Urine Specific [place] 1.005 Urine Protein NEG mg/dL Urine Glucose (UA) NEG mg/dL Urine Ketones NEG mg/dL Urine Occult Blood NEG Urine Nitrite NEG Urine Bilirubin NEG Urine Urobilinogen LESS THAN 2.0 MG/DL Urine Leukocyte Esterase NEG Urine WBC LESS THAN 1 /hpf Urine Squamous Epithelial 5 /hpf Cells Microscopic Urinalysis Comment CATH-CULT NOT IND Ammonia 26 MCMOL/L Vitamin B12 Level 284 PG/ML Folate 17.4 NG/ML Free Thyroxine 0.99 NG/DL Thyroid Stimulating Hormone 3.050 uIU/ML 3rd Gen Sodium Level 140 MEQ/L Potassium Level 3.6 MEQ/L Chloride Level 110 MEQ/L Carbon Dioxide Level 19.8 MEQ/L Anion Gap 10 MEQ/L Blood Urea Nitrogen 8 MG/DL Creatinine 0.70 MG/DL Estimat Glomerular Filtration 90 ML/MIN Rate Random Glucose 92 MG/DL Calcium Level 8.6 MG/DL Magnesium Level 2.0 MG/DL White Blood Count 9.4 TH/MM3 Red Blood Count 4.30 MIL/MM3 Hemoglobin 10.9 GM/DL Hematocrit 34.2 % Mean Corpuscular Volume 79.4 FL Mean Corpuscular Hemoglobin 25.4 PG Mean Corpuscular Hemoglobin 31.9 % Concent Red Cell Distribution Width 17.7 % Platelet Count 293 TH/MM3 Mean Platelet Volume 8.8 FL Neutrophils (%) (Auto) 64.7 % Lymphocytes (%) (Auto) 27.1 % Monocytes (%) (Auto) 7.6 % Eosinophils (%) (Auto) 0.3 % Basophils (%) (Auto) 0.3 % Neutrophils # (Auto) 6.0 TH/MM3 Lymphocytes # (Auto) 2.5 TH/MM3 Monocytes # (Auto) 0.7 TH/MM3 Eosinophils # (Auto) 0.0 TH/MM3 Basophils # (Auto) 0.0 TH/MM3 CBC Comment DIFF FINAL Differential Comment Medical Decision Making Impression and Plan New right sided weakness, no shunt malfunction and no new endocrinopathy. EEG shows some sharp waves in the left frontal field. depakote initiated in the absence of clinical improvement. Total Minutes: 10 Olayinka Lang May 10, 2016 11:29
[2016-05-10 12:07] LABS: INDIRECT BILIRUBIN 0.3 MG/DL (0.0-0.8); TOTAL BILIRUBIN ADULT 0.4 MG/DL (0.2-1.0)
[2016-05-10] MEDS ORDERED: GADODIAMIDE PF 287 MG/ML 20 ML VIAL (for RAD MRI) IV ONE (14:14)
[2016-05-10 14:48] LABS: RAPID PLASMA REAGIN SCREEN NON-REACTIVE (NON-REACTVE)
--- NOTE | 2016-05-10 15:30 | HHI.PR ---
Subjective Remarks Pt c/o continued right sided weakness. Objective Vitals Vital Signs Date Time Temp Pulse Resp B/P Pulse Ox O2 Delivery O2 Flow Rate FiO2 05/10/16 12:14 98.6 72 20 137/74 97 05/10/16 08:00 98.4 70 20 118/74 97 05/10/16 04:24 97.9 62 18 128/74 98 05/10/16 00:19 98.0 69 19 131/176 95 05/09/16 20:53 98.3 75 18 139/73 98 05/09/16 20:00 65 05/09/16 16:26 98.8 75 18 117/69 97 05/09/16 15:44 71 131/71 96 Room Air 05/09/16 05/09/16 05/10/16 15:00 23:00 07:00 Intake Total 993 ml Balance 993 ml Intake IV Total 993 ml Result Diagram: 05/10/16 0657 05/10/16 0651 Imaging MRV (05/10/16) --> negative Last Impressions Head CT 05/09/16 0930 Signed Impressions: Service Date/Time: Monday, May 09, 2016 09:36 - CONCLUSION: 1. 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 2. Stable position of shunt tubing which enters the right high convexity anterior parietal bone. Ventricles remain small but stable. 3. Nothing acute. Moris Briggs MD Chest X-Ray 05/09/16 0930 Signed Impressions: Service Date/Time: Monday, May 09, 2016 10:18 - CONCLUSION: Two right internal jugular central lines as described above. Yevgeniy Carrera MD Skull X-Ray 05/09/16 0000 Signed Impressions: Service Date/Time: Monday, May 09, 2016 12:35 - CONCLUSION: The valve setting appears to be at 110 mm H2O. Yevgeniy Carrera MD Brain MRI 05/09/16 0000 Signed Impressions: Service Date/Time: Monday, May 09, 2016 12:01 - CONCLUSION: 1. No acute abnormality is seen. 2. Ventriculostomy tube in place from the right frontal approach. 3. Areas of encephalomalacia at the left medial frontal lobe and at the right posterior temporal occipital regions. 4. No areas of acute hemorrhage, mass effect or infarction are seen. Yevgeniy Carrera MD A/P Problem List: (1) Acute right-sided weakness Status: Acute Plan: - comgmt with Neurology and Neurosurgery - CT brain (05/07/16) --> no acute findings - MRI brain (05/08/16) --> NO acute findings - MRA brain (05/08/16) --> NO acute findings - b/l Carotid US (05/08/16) --> no acute findings - repeat MRI brain (05/09/16) --> no acute findings - TSH, free T4, B12, folate, RPR --> WNL - MRV (05/10/16) --> negative - continue Aspirin 81mg daily - EEG (05/09/16) --> cortical irritability - observe on telemetry - obtain holter - obtain echocardiogram Jose G Restrepo DO May 10, 2016 15:30
--- NOTE | 2016-05-10 15:35 | RADRPT ---
EXAM DATE/TIME: 05/10/2016 12:28 COMPARISON: No previous studies available for comparison. INDICATIONS : Numbess on right side of body CONTRAST: 20 cc Omniscan (gadodiamide) IV MEDICAL HISTORY : Hydrocephalis. SURGICAL HISTORY : Brain shunt, Rt left ORIF ENCOUNTER: Subsequent ACUITY: 3 day PAIN SCORE: 0/10 LOCATION: cranial FINDINGS: Examination demonstrates no evidence of venous sinus thrombosis. The superior sagittal sinus, transve rse sinuses and sigmoid sinuses are patent bilaterally. The internal cerebral veins and straight sinu s are normal. CONCLUSION: Unremarkable MR venography of the brain. Gray Valentin MD on May 10, 2016 at 15:26 Board Certified Radiologist. This report was verified electronically.
--- NOTE | 2016-05-10 16:19 | EC ---
Study Study Date:05/10/2016 STUDY CONCLUSIONS SUMMARY - Left ventricle: The cavity size was normal. Wall thickness was normal. Systolic function was normal. The estimated ejection fraction was in the range of 55% to 60%. Although no diagnostic regional wall motion abnormality was identified, this possibility cannot be completely excluded on the basis of this study. - Aortic valve: Valve area: 2.41cm^2 (Vmax). - Left atrium: The atrium was mildly dilated. If LV function is below 40, please consider prescribing an ACEI or ARB or document rationale for non-use. PROCEDURE DATA STUDY STATUS: Elective. Procedure: Transthoracic echocardiography. Image quality was good. Scanning was performed from the parasternal, apical, and subcostal acoustic windows. Study completion: The patient tolerated the procedure well. Transthoracic echocardiography. M-mode, complete 2D, complete spectral Doppler, and color Doppler. Height: Height: 59in. Weight: Weight: 144.7lb. Body mass index: BMI: 29.3kg/m^2. Body surface area: BSA: 1.61m^2. Patient status: Inpatient. CARDIAC ANATOMY LEFT VENTRICLE: The cavity size was normal. Wall thickness was normal. Systolic function was normal. The estimated ejection fraction was in the range of 55% to 60%. Although no diagnostic regional wall motion abnormality was identified, this possibility cannot be completely excluded on the basis of this study. AORTIC VALVE: Trileaflet; normal thickness leaflets. Doppler: Transvalvular velocity was within the normal range. There was no stenosis. No regurgitation. Valve area: 2.41cm^2 (Vmax). Indexed valve area: 1.5cm^2/m^2 (Vmax). AORTA: Aortic root: The aortic root was normal in size. MITRAL VALVE: Structurally normal valve. Doppler: Transvalvular velocity was within the normal range. There was no evidence for stenosis. No regurgitation. Peak gradient: 2mm Hg (D). LEFT ATRIUM: The atrium was mildly dilated. RIGHT VENTRICLE: The cavity size was normal. Wall thickness was normal. PULMONIC VALVE: Doppler: Transvalvular velocity was within the normal range. There was no evidence for stenosis. No regurgitation. TRICUSPID VALVE: Poorly visualized. Structurally normal valve. Doppler: Transvalvular velocity was within the normal range. No regurgitation. PULMONARY ARTERY: Poorly visualized. Systolic pressure was within the normal range. RIGHT ATRIUM: The atrium was normal in size. PERICARDIUM: There was no pericardial effusion. SYSTEMIC VEINS: Inferior vena cava: Not visualized. Patient weight: 144.7lb _Ejection fraction:_ 65-75% _Fractional shortening:_ 32% up to 5Kg 5-11.5Kg 11.6-22.9Kg 23-45Kg 45-57Kg Aortic Root 7-13 <17 13-22 17-27 17-27 LA diam 6-13 <23 24-38 33-47 37-40 RVID 10-17 7-15 7-15 7-18 8-17 LVIDd 12-22 <32 24-38 33-47 37-40 LVPW 2-4 3-6 5-7 6-8 7-8 IVS 2-4 3-6 5-7 6-8 7-8 BASIC MEASUREMENTS ADULT NORMAL Left ventricle LV internal dimension, ED, chordal 51.1 mm 43-52 level, PLAX LV internal dimension, ES, chordal *42.6 mm 23-38 level, PLAX Fractional shortening, chordal level, *17 % >29 PLAX LV posterior wall thickness, ED 9.09 mm IVS/LVPW ratio, ED 0.75 <1.3 Ventricular septum Septal thickness, ED 6.83 mm Aortic valve Leaflet separation 19 mm 15-26 BASIC MEASUREMENTS ADULT NORMAL Aortic valve Leaflet separation 19 mm 15-26 Aorta Root diameter, ED 26 mm 20-37 Left atrium Anterior-posterior dimension, ES *42 mm 19-40 Anterior-posterior dimension index, ES *2.61 cm/m^2 <2.2 LA/aortic root ratio 1.62 DOPPLER MEASUREMENTS ADULT NORMAL Aortic valve Peak velocity, S 125 cm/s Valve area, Vmax 2.41 cm^2 Valve area index, Vmax 1.5 cm^2/m^2 Mitral valve Peak E-wave velocity 76.5 cm/s Peak A-wave velocity 82.9 cm/s Deceleration time 197 ms 150-230 Peak gradient, D 2 mm Hg Peak E/A ratio 0.9 Pulmonic valve Peak velocity, S 99.1 cm/s LEGEND: Mean values are shown as u=mean value. Asterisk (*) rosales values outside specified normal range. Prepared and signed by Ivan Rahman [id number]
[2016-05-10] MEDS: VALPROATE INJ 500 MG in SODIUM CHLORIDE 0.9% INJ 100 ML IV SCH ×2 (16:56→21:11)
--- NOTE | 2016-05-10 18:00 | HHI.PR ---
Review/Management Diagnosis Acute left hemispheric stroke not seen on MRI brain - Right hemiparesis, and facial nerve involvement Possible etiology is a post radiation scar tissue at the parietal region Another possible etiology is a small restricted diffusion that is not seen on the MRI at the internal capsule or brain stem. - History of seizures, currently on non-seizure medication. - I discussed the case with Dr. Restrepo, and agreed on the plan of care - Neurosurgery noted that the shunt seems to be working at 80mm H2O, it was programmed after the MRI Plan PLAN - Neuro checks q4 hourly - Continue aspirin 81 mg daily. - PT, OT recommendations are appreciated. - DVT prophylaxis - GI prophylaxis. Diagnosis/Plan: (1) Hydrocephalus (2) post radiation late effects Subjective Subjective Comments Patient was reported with increasing weakness of the right side last night, with more slurred speech MRV was reported as unremarkable EEG was reported as 'mild encephalopathy,suggestion of cortical irritability, in the right frontal central parietal region, clinical correlation'. Patient states that her speech has slightly improved Active Medications Current Medications Medications (Trade) Dose Ordered Sig/Mer Route Start Time Stop Time Status Last Admin (NS Flush) 2 ml UNSCH PRN FLUSH 05/09/16 11:30 (NS Flush) 2 ml BID FLUSH 05/09/16 21:00 (Tylenol) 650 mg Q4H PRN PO 05/09/16 11:30 05/10/16 00:28 (Zofran Inj) 4 mg Q6H PRN IVP 05/09/16 11:30 (Dulcolax Supp) 10 mg DAILY PRN MD 05/09/16 11:30 (Milk Of Magnesia Liq) 30 ml Q12H PRN PO 05/09/16 11:30 (Narcan Inj) 0.4 mg UNSCH PRN IV 05/09/16 11:30 (Vasotec Inj) 1.25 mg Q4H PRN IV 05/09/16 12:30 (Trandate Inj) 10 mg Q2H PRN IV 05/09/16 12:30 Aspirin 81 mg 81 mg DAILY PO 05/10/16 09:00 05/10/16 09:08 (Depacon Inj/NS Inj) 105 ml @ 105 mls/hr Q12HR IV 05/10/16 13:00 05/10/16 16:56 Allergies Allergies Coded Allergies No Known Allergies (Verified05/07/16) Exam I&O / VS 05/09/16 05/09/16 05/10/16 15:00 23:00 07:00 Intake Total 993 ml Balance 993 ml IV Total 993 ml Vital Signs Date Time Temp Pulse Resp B/P Pulse Ox O2 Delivery O2 Flow Rate FiO2 05/10/16 16:00 98.2 65 20 136/76 98 05/10/16 12:14 98.6 72 20 137/74 97 05/10/16 08:00 98.4 70 20 118/74 97 05/10/16 04:24 97.9 62 18 128/74 98 05/10/16 00:19 98.0 69 19 131/176 95 05/09/16 20:53 98.3 75 18 139/73 98 05/09/16 20:00 65 Exam Comments GENERAL: Awake, oriented, slurred speech. No apparent distress. HEENT: Atraumatic, normocephalic. Shunt in place on the right parietal region. Intact hearing. Intact vision. Trachea midline. No meningeal signs. No carotid bruits. CARDIOVASCULAR: Regular rate and rhythm without murmurs. RESPIRATORY: Clear to auscultation. No wheezes. MUSCULOSKELETAL: Extremities without clubbing, cyanosis or edema. Moves the left side normally. She is weak on the right upper and lower extremity. NEUROLOGIC: Awake, alert, oriented to time, person and place. Slurred speech. Intact speech content. Intact naming, intact repetition. Right facial palsy, questionable lower motor neuron type with rather weak eye closure. Intact facial sensation. No nystagmus. Pupils equal bilaterally. No diplopia. Tongue is midline, moves freely in the mouth. Normal palate elevation. Mild right facial weakness. MOTOR SYSTEM EXAMINATION: Right shoulder, abduction, elbow extension and wrist extension 2/5. Shoulder adduction, elbow flexion and wrist flexion 3/5. Right lower extremity, hip flexion, knee extension, and foot dorsiflexion 2/5. The left side is 5/5 upper and lower extremities. Reflexes 1+ bilateral symmetrical, plantars are bilateral downgoing. Sensation is intact bilaterally. No sensory extinction. Cerebellar function on the left side are normal. [id number], [id number] on the right side unable to perform because of the weakness. PSYCHOLOGICAL: Intact behavior. No visual hallucinations. Normal judgment. Objective Radiology Results Last 72 hours Impressions Head/Brain Mag Res Venography 05/10/16 0000 Signed Impressions: Service Date/Time: Tuesday, May 10, 2016 12:28 - CONCLUSION: Unremarkable MR venography of the brain. Gray Valentin MD Head CT 05/09/16 0930 Signed Impressions: Service Date/Time: Monday, May 09, 2016 09:36 - CONCLUSION: 1. 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 2. Stable position of shunt tubing which enters the right high convexity anterior parietal bone. Ventricles remain small but stable. 3. Nothing acute. Moris Briggs MD Chest X-Ray 05/09/1630 Signed Impressions: Service Date/Time: Monday, May 09, 2016 10:18 - CONCLUSION: Two right internal jugular central lines as described above. Yevgeniy Carrera MD Skull X-Ray 05/09/16 0000 Signed Impressions: Service Date/Time: Monday, May 09, 2016 12:35 - CONCLUSION: The valve setting appears to be at 110 mm H2O. Yevgeniy Carrera MD Skull X-Ray 05/09/16 0000 Signed Impressions: Service Date/Time: Monday, May 09, 2016 11:21 - CONCLUSION: The pressure appears to correspond to 80-90 mm H2O. Yevgeniy Carrera MD Brain MRI 05/09/16 0000 Signed Impressions: Service Date/Time: Monday, May 09, 2016 12:01 - CONCLUSION: 1. No acute abnormality is seen. 2. Ventriculostomy tube in place from the right frontal approach. 3. Areas of encephalomalacia at the left medial frontal lobe and at the right posterior temporal occipital regions. 4. No areas of acute hemorrhage, mass effect or infarction are seen. Yevgeniy Carrera MD Micro and Labs Laboratory Tests Test 05/10/16 05/10/16 06:51 06:57 Sodium Level 140 Potassium Level 3.6 Chloride Level 110 Carbon Dioxide Level 19.8 Anion Gap 10 Blood Urea Nitrogen 8 Creatinine 0.70 Estimat Glomerular Filtration 90 Rate Random Glucose 92 Calcium Level 8.6 Magnesium Level 2.0 Total Bilirubin 0.4 Direct Bilirubin 0.1 Indirect Bilirubin 0.3 Aspartate Amino Transf 9 (AST/SGOT) Alanine Aminotransferase 21 (ALT/SGPT) Alkaline Phosphatase 81 Total Protein 7.0 Albumin 3.3 White Blood Count 9.4 Red Blood Count 4.30 Hemoglobin 10.9 Hematocrit 34.2 Mean Corpuscular Volume 79.4 Mean Corpuscular Hemoglobin 25.4 Mean Corpuscular Hemoglobin 31.9 Concent Red Cell Distribution Width 17.7 Platelet Count 293 Mean Platelet Volume 8.8 Neutrophils (%) (Auto) 64.7 Lymphocytes (%) (Auto) 27.1 Monocytes (%) (Auto) 7.6 Eosinophils (%) (Auto) 0.3 Basophils (%) (Auto) 0.3 Neutrophils # (Auto) 6.0 Lymphocytes # (Auto) 2.5 Monocytes # (Auto) 0.7 Eosinophils # (Auto) 0.0 Basophils # (Auto) 0.0 CBC Comment DIFF FINAL Differential Comment Nely Echevarria MD May 10, 2016 18:00 Nely Echevarria MD May 10, 2016 18:00 Nely Echevarria MD May 10, 2016 18:00
[2016-05-11] VITALS (7 sets, daily range): BP systolic 107–135; BP diastolic 61–74; PULSE 59–80; RESP 17–20; TEMP 96.7–98.9; O2SAT 95–98
[2016-05-11] MEDS: VALPROATE INJ 500 MG in SODIUM CHLORIDE 0.9% INJ 100 ML IV SCH (09:22)
[2016-05-11] MEDS: ASPIRIN EC 81 MG TABEC PO SCH (09:22)
[2016-05-11] MEDS: SODIUM CHLORIDE 0.9% FLUSH 5 ML FLUSH FLUSH SCH ×2 (09:25→23:05)
--- NOTE | 2016-05-11 16:29 | HHI.PR ---
Subjective Remarks No new complaints. Objective Vitals Vital Signs Date Time Temp Pulse Resp B/P Pulse Ox O2 Delivery O2 Flow Rate FiO2 05/11/16 12:00 96.7 80 20 135/66 97 05/11/16 08:00 97.0 68 18 115/68 95 05/11/16 04:00 98.0 67 18 122/70 98 05/11/16 00:00 98.9 64 18 124/61 96 05/10/16 20:00 97.5 64 18 97/59 97 05/10/16 20:00 69 05/10/16 05/10/16 05/11/16 15:00 23:00 07:00 Intake Total 360 ml Output Total 400 ml Balance -40 ml Intake Oral 360 ml Output Urine Total 400 ml # Voids 3 1 # Bowel Movements 1 Result Diagram: 05/10/16 0657 05/10/16 0651 Imaging MRV (05/10/16) --> negative Last Impressions Head CT 05/09/1630 Signed Impressions: Service Date/Time: Monday, May 09, 2016 09:36 - CONCLUSION: 1. 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 2. Stable position of shunt tubing which enters the right high convexity anterior parietal bone. Ventricles remain small but stable. 3. Nothing acute. Moris Briggs MD Chest X-Ray 05/09/16 0930 Signed Impressions: Service Date/Time: Monday, May 09, 2016 10:18 - CONCLUSION: Two right internal jugular central lines as described above. Yevgeniy aCrrera MD Skull X-Ray 05/09/16 0000 Signed Impressions: Service Date/Time: Monday, May 09, 2016 12:35 - CONCLUSION: The valve setting appears to be at 110 mm H2O. Yevgeniy Carrera MD Brain MRI 05/09/16 0000 Signed Impressions: Service Date/Time: Monday, May 09, 2016 12:01 - CONCLUSION: 1. No acute abnormality is seen. 2. Ventriculostomy tube in place from the right frontal approach. 3. Areas of encephalomalacia at the left medial frontal lobe and at the right posterior temporal occipital regions. 4. No areas of acute hemorrhage, mass effect or infarction are seen. Yevgeniy Carrera MD Objective Remarks GENERAL: This is a well-nourished, well-developed patient, in no apparent distress. CARDIOVASCULAR: Regular rate and rhythm without murmurs, gallops, or rubs. RESPIRATORY: Clear to auscultation. Breath sounds equal bilaterally. No wheezes , rales, or rhonchi. GASTROINTESTINAL: Abdomen soft, non-tender, nondistended. Normal active bowel sounds MUSCULOSKELETAL: Extremities without clubbing, cyanosis, or edema. NEURO: A&Ox3, right sided weakness A/P Problem List: (1) Acute right-sided weakness Status: Acute Plan: - comgmt with Neurology and Neurosurgery - CT brain (05/07/16) --> no acute findings - MRI brain (05/08/16) --> NO acute findings - MRA brain (05/08/16) --> NO acute findings - b/l Carotid US (05/08/16) --> no acute findings - repeat MRI brain (05/09/16) --> no acute findings - TSH, free T4, B12, folate, RPR --> WNL - MRV (05/10/16) --> negative - continue Aspirin 81mg daily - EEG (05/09/16) --> cortical irritability - observe on telemetry - obtain holter --> pending - echocardiogram 55-60% - anticipate d/c to SNF 05/12 Jose G Restrepo DO May 11, 2016 16:29
[2016-05-11] MEDS ORDERED: DIVALPROEX SODIUM E.R. 500 MG TAB PO SCH (21:00)
--- NOTE | 2016-05-11 21:31 | HM ---
Date Performed: 05/09/2016 Time Performed: 19:46:00 HOOKUP DATE: 05/09/16 07:46:00 PM Tue ANALYSIS START TIME: 05/09/2016 7:51:00 PM ANALYSIS END TIME: 05/10/2016 12:16:56 PM PATIENT AGE: 46 PATIENT HEIGHT: 59 PATIENT WEIGHT: 145 DRUG LIST: ROOM 1511 PATIENT DIAGNOSIS: CVA TEST NARRATIVE: The patient's average heart rate was 71 BPM. No episodes of tachycardia wer e noted. No episodes of bradycardia were noted. No pauses exceeding 2.0 seconds were noted. No ventricular ectopics were noted. 1 supraventricular ectopics, which represented < 1% of the to raman beat count, were noted. The highest supraventricular ectopic frequency occurred from 09:00 PM to 10:00 PM Tue. During this time 1 SVE(s) occurred. No episodes of ST depression (defined as -1.0 mm or more) were noted in channel 1. No episodes of ST depression (defined as -1.0 mm or more) were noted in channel 2. No episodes of ST depression (defined as -1.0 mm or more) were noted in channel 3. TEST INTERPRETATION: Benign Holter Monitor Signed by : Talib Antoine
[2016-05-12] VITALS: BP 103/81; PULSE 64; RESP 16; TEMP 98; O2SAT 97
[2016-05-12 04:00] VITALS: BP 112/60; PULSE 75; RESP 18; TEMP 97.5; O2SAT 96
[2016-05-12 08:00] VITALS: PULSE 72
[2016-05-12 08:53] VITALS: BP 114/64; PULSE 66; RESP 20; TEMP 98; O2SAT 95
[2016-05-12] MEDS: ASPIRIN EC 81 MG TABEC PO SCH (09:00)
[2016-05-12] MEDS: SODIUM CHLORIDE 0.9% FLUSH 5 ML FLUSH FLUSH SCH (09:00)
[2016-05-12 12:25] VITALS: BP 108/66; PULSE 72; RESP 20; TEMP 98.7; O2SAT 94
[2016-05-12 15:59] VITALS: BP 107/78; PULSE 85; RESP 20; TEMP 98.4; O2SAT 95
[2016-05-12] MEDS ORDERED: DEPA500T3 PO (16:46)
--- NOTE | 2016-05-12 17:05 | HHI.DCPOC ---
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 Avoid second hand smoke Call the 24-hour hour crisis hotline for domestic abuse at [facility] May 12, 2016 17:05 Jose G Restrepo DO May 19, 2016 18:14
--- NOTE | 2016-05-12 17:05 | HHI.DS ---
Discharge Summary Admission Date May 09, 2016 at 11:16 Discharge Date: May 12, 2016 Admitting Diagnosis CVA (1) Acute right-sided weakness Consultants Dr. Olayinka Lang - Neurosurgery Dr. Nely Echevarria - Neurology Brief History Patient has distant history of benign brain tumor. Patient was given radiation therapy around age 19. 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 Patient was admitted to my service yesterday with complaint of numbness in either both or one of her arms. Patient was unable to recall exactly. Patient also complained of yesterday having right lower extremity numbness and tingling and then right upper extremity numbness and tingling. Patient also complained of some slurred speech occurring the evening of May 07. All of the patient' s symptoms had resolved prior to her arrival to the ER yesterday. Patient underwent extensive workup yesterday including CT brain, MRI brain, MRA brain, bilateral carotid ultrasound. All of these studies were negative and the patient was eager for discharge yesterday evening. I saw the patient yesterday evening at approximately 8:30 PM at which time she appeared neurologically intact. Discharge orders were written. This morning the patient's tells me that Ms. Marc was unable to ambulate prior to discharge from [facility] and had to be taken to her car by a wheelchair. However , I was not contacted for this. Patient was then brought from the hospital to the home of her [id number]-uic who is an EMT. Patient's ayptkqq-iz-yte was in the room this morning. He reported to me that he did a brief neurological examination last night and found no focal deficits. Patient's reports that around 3 AM Ms. Marc was having difficulty moving her right arm and right leg and required assistance getting to the bathroom. When patient awoke this morning, her right sided weakness persisted, so patient was brought back to the [facility] ER. Case has been discussed between the ER physician Dr. Meza and Neurology, Dr. Echevarria. Neurology requests repeat MRI of the brain. At the time of my visit with has some dysarthria and right sided weakness. Pt will be admitted to [facility] for further evaluation and treatment. CBC/BMP: 05/10/16 0657 05/10/16 0651 Significant Findings Laboratory Tests Test 05/10/16 05/10/16 06:51 06:57 Chloride Level 110 MEQ/L (98-107) Carbon Dioxide Level 19.8 MEQ/L (21.0-32.0) Aspartate Amino Transf 9 U/L (15-37) (AST/SGOT) Albumin 3.3 GM/DL (3.4-5.0) Hemoglobin 10.9 GM/DL (11.6-15.3) Hematocrit 34.2 % (35.0-46.0) Mean Corpuscular Volume 79.4 FL (80.0-100.0) Mean Corpuscular Hemoglobin 25.4 PG (27.0-34.0) Mean Corpuscular Hemoglobin 31.9 % Concent (32.0-36.0) Red Cell Distribution Width 17.7 % (11.6-17.2) Imaging Last Impressions Head/Brain Mag Res Venography 05/10/16 0000 Signed Impressions: Service Date/Time: Tuesday, May 10, 2016 12:28 - CONCLUSION: Unremarkable MR venography of the brain. Gray Valentin MD Head CT 05/09/16 0930 Signed Impressions: Service Date/Time: Monday, May 09, 2016 09:36 - CONCLUSION: 1. 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 2. Stable position of shunt tubing which enters the right high convexity anterior parietal bone. Ventricles remain small but stable. 3. Nothing acute. Moris Briggs MD Chest X-Ray 05/09/1630 Signed Impressions: Service Date/Time: Monday, May 09, 2016 10:18 - CONCLUSION: Two right internal jugular central lines as described above. Yevgeniy Carrera MD Skull X-Ray 05/09/16 0000 Signed Impressions: Service Date/Time: Monday, May 09, 2016 12:35 - CONCLUSION: The valve setting appears to be at 110 mm H2O. Yevgeniy Carrera MD Brain MRI 05/09/16 0000 Signed Impressions: Service Date/Time: Monday, May 09, 2016 12:01 - CONCLUSION: 1. No acute abnormality is seen. 2. Ventriculostomy tube in place from the right frontal approach. 3. Areas of encephalomalacia at the left medial frontal lobe and at the right posterior temporal occipital regions. 4. No areas of acute hemorrhage, mass effect or infarction are seen. Yevgeniy Carrera MD Hospital Course Pt was admitted to [facility] on 05/09/16 with difficulty moving her right arm and right leg and required assistance getting to the bathroom. She had a previous workup two days prior for right sided paresthesias which included, CT brain () --> no acute findings, MRI brain (05/08/16) --> NO acute findings, MRA brain (05/08/16) --> NO acute findings, and b/l Carotid US (05/08/16) --> no acute findings. Neurology and Neurosurgery were consulted at the time of this admission and a repeat MRI brain (05/09/16) showed no acute findings. TSH, free T4, B12, folate, RPR --> WNL. MRV (05/10/16) --> negative. Neurosurgery did not feel there was any shunt malfunction. EEG showed some sharp waves in the left frontal field and Neurosurgery initiated Depakote in the absence of clinical improvement. Based on discussion between Dr. Restrepo and Dr. 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 Possible etiology is a post radiation scar tissue at the parietal region or another possible etiology is a small restricted diffusion that is not seen on the MRI at the internal capsule or brain stem. 2D echo (05/10) with estimated EF 55-60%, no wall motion abnormalities and the LA was mildly dilated. Holter monitor with benign findings. Pt has been recommended to continue on Aspirin 81mg daily She will be discharged to [facility] for inpatient rehabilitation. She will followup with Dr. Echevarria in 2 weeks Pt will need to followup with Dr. Palomo in 2 weeks She can followup with her PCP, 1 week after discharge from rehab. Pt Condition on Discharge: Stable Discharge Disposition: Rehab Inpatient Discharge Instructions DIET: Follow Instructions for: Heart Healthy Diet Activities you can perform: Regular-No Restrictions Follow up Referrals: Neurology - 2 Weeks with Nely Echevarria MD Neurosurgery - 2 Weeks with Forrest Palomo MD PCP Follow-up - [address] Wagid Guirgis New Medications: Divalproex ER (Depakote ER) 500 Mg Romeo 500 MG PO HS hx seizure #30 TAB Continued Medications: Aspirin (Aspirin [facility]) 81 Mg Chew 81 MG PO DAILY #30 Ref 0 TAB Additional Information Patient examined. Assessment and plan formulated with Mei Salamanca PA-C. I agree with the above. Mei Salamanca May 12, 2016 17:04 Jose G Restrepo DO May 19, 2016 18:14
[2016-05-29] MEDS ORDERED: QUADMIS (14:03)
[2016-05-29] MEDS ORDERED: WHEEMIS3 (14:03)
[2016-05-29] MEDS ORDERED: COMMODE 3-IN-11 MIS (14:03)
[2016-06-08] MEDS ORDERED: DEPA500T3 PO (09:31)
[2016-06-08] MEDS ORDERED: APIX5TAB PO (09:31)
== END 2016-05-12 18:38 | DRG 65 ==
LOC: NEPA 09:14 → NEDA 11:16 → N05A 16:02
PROVIDERS: ADMIT Hospitalist; ATTEND Hospitalist
DX: I63.9 Cerebral infarction, unspecified (principal); G81.91 Hemiplegia, unspecified affecting right dominant side; G91.1 Obstructive hydrocephalus; G93.89 Other specified disorders of brain; R47.1 Dysarthria and anarthria; R29.810 Facial weakness; Z98.2 Presence of cerebrospinal fluid drainage device; Z86.011 Personal history of benign neoplasm of the brain; Z92.3 Personal history of irradiation; Y84.2 Radiological procedure and radiotherapy as the cause of abnormal reaction of the patient, or of later complication, without mention of misadventure at the time of the procedure; Z79.82 Long term (current) use of aspirin
CPT/HCPCS: 70250; 70450; 70544; 70546; 70552; 70553; 71010; 72040; 74000; 80048; 80076; 80307; 81001; 82140; 82550; 82607; 82746; 83735; 84439; 84443; 84484; 85025; 85610; 85730; 86592; 93005; 93225; 93226; 93306; 93880; 95819; 96360; A9579; G0378; J3480; J7030; J7040

== ENCOUNTER 2016-09-10 10:33 | Emergency (ER) | payer SELFPAY ==
[~2016-09-10] VITALS: Ht 152.4 cm; Wt 93.0 kg
[~2016-09-10 10:33] MED LIST changes: +APIX5TAB PO; -Aspirin Chew PO; +COMMODE 3-IN-11 MIS; +DEPA500T3 PO; +QUADMIS; +WHEEMIS3
[2016-09-10 10:49] VITALS: BP 139/75; PULSE 94; RESP 18; TEMP 98.3; O2SAT 96
[2016-09-10] MEDS ORDERED: VALP250 PO (10:54)
[2016-09-10] MEDS ORDERED: ASPI325T PO (10:54)
--- NOTE | 2016-09-10 10:59 | PD ---
HPI Chief Complaint: Back/ Neck Pain or Injury Time Seen by Provider: 10:56 Travel History International Travel<30 days: No Contact w/Intl Traveler<30days: No Traveled to known affect area: No History of Present Illness HPI Patient presents with complaints of right lower back pain for several weeks. Reports a fall from chair level to the ground on her right buttocks on August 29. Able to ambulate. Uses a cane. Concerns of urinary symptoms. Reports mild discomfort on urination. Denies nausea vomiting diarrhea or fever. No new rashes. Denies any chest pain shortness of breath or bowel symptoms. 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 - LAST REVISION 4YR) Psychiatric: No Reproductive: No Respiratory: No Migraines: No Myocardial Infarction: No Radiation Therapy: Yes (for benign brain tumor) Renal Failure: No Seizures: Yes Sickle Cell Disease: No Sleep Apnea: No Thyroid Disease: No Ulcer: No Influenza Vaccination: Yes ?: Not Past Surgical History Abdominal Surgery: No AICD: No Arteriovenous Shunt: No Body Medical Devices: SIGN PAINTER HELPER SHUNT Cardiac Surgery: No Ear Surgery: No Endocrine Surgery: No Eye Surgery: Yes (cyst in right eye, 1988) Genitourinary Surgery: No Gynecologic Surgery: No Insulin Pump: No Joint Replacement: No Neurologic Surgery: Yes (PT. HAS A HISTORY OF BRAIN TUMOR - SHUNT WITH RADIATION - SIGN PAINTER HELPER SHUNT IN PLACE) Oral Surgery: Yes (wisdom teeth pulled) Pacemaker: No Thoracic Surgery: No Other Surgery: Yes (10 BRAIN SURGERIES HYDROCEPHALIC WITH SHUNT PILONIDAL CYST NECK CYST) Social History Alcohol Use: No Tobacco Use: No Substance Use: No Allergies-Medications (Allergen,Severity, Reaction): Coded Allergies: No Known Allergies (Verified , 09/10/16) Reported Meds & Prescriptions Reported Meds & Active Scripts Active Reported Depakene (Valproic Acid) 250 Mg Cap 500 Mg PO TID Aspirin 325 Mg Tab 325 Mg PO DAILY Review of Systems General / Constitutional: No: Fever Eyes: No: Visual changes HENT: No: Headaches Cardiovascular: No: Chest Pain or Discomfort Respiratory: No: Shortness of Breath Gastrointestinal: No: Abdominal Pain Genitourinary: No: Dysuria Musculoskeletal: No: Pain Skin: No Rash Neurologic: No: Weakness Psychiatric: No: Depression Endocrine: No: Polydipsia Hematologic/Lymphatic: No: Easy Bruising Physical Exam Narrative GENERAL: Well-nourished, well-developed patient. SKIN: Focused skin assessment warm/dry. HEAD: Normocephalic. EYES: No scleral icterus. No injection or drainage. NECK: Supple, trachea midline. No JVD or lymphadenopathy. CARDIOVASCULAR: Regular rate and rhythm without murmurs, gallops, or rubs. RESPIRATORY: Breath sounds equal bilaterally. No accessory muscle use. GASTROINTESTINAL: Abdomen soft, non-tender, nondistended. MUSCULOSKELETAL: No cyanosis, or edema. BACK: Nontender without obvious deformity. No CVA tenderness. Examination the lumbar spine reveals no midline tenderness right sided paraspinous pain Data Data Last Documented VS Vital Signs Date Time Temp Pulse Resp B/P Pulse Ox O2 Delivery O2 Flow Rate FiO2 09/10/16 10:49 98.3 94 18 139/75 96 Orders Urinalysis - C+S If Indicated (09/10/16 10:56) Urine Culture (09/10/16 11:15) Labs Laboratory Tests Test 09/10/16 11:15 Urine Collection Type CLEAN CATCH Urine Color YELLOW Urine Turbidity SLIGHT Urine pH 7.0 Urine Specific [place] 1.025 Urine Protein TRACE mg/dL Urine Glucose (UA) NEG mg/dL Urine Ketones NEG mg/dL Urine Occult Blood NEG Urine Nitrite NEG Urine Bilirubin NEG Urine Leukocyte Esterase NEG Urine Squamous Epithelial 6-8 /hpf Cells Urine Amorphous Sediment FEW Urine Bacteria MOD /hpf Microscopic Urinalysis Comment CULTURE INDICATED Urine Collection Time 1115 MDM Medical Decision Making Medical Screen Exam Complete: Yes Emergency Medical Condition: Yes Differential Diagnosis UTI, lumbar muscle skeletal pain, degenerative disc disease Narrative Course Assessment and plan discussed with patient and at bedside Diagnosis Primary Impression: Lumbago Qualified Code: M54.5 - Acute right-sided low back pain without sciatica Additional Impression: UTI (urinary tract infection) Qualified Code: N39.0 - Urinary tract infection without hematuria, site unspecified Patient Instructions: General Instructions Additional Instructions: Encourage nonsteroidal anti-inflammatories warm heat gentle stretching and strengthening and massage for her lumbar muscles skeletal pain. Encourage fluids and cranberry supplement for her UTI. Follow-up with PCP to assess progress. Med/Other Pt SpecificInfo: Prescription(s) given Scripts Ciprofloxacin (Cipro)500 Mg [id number] Mg PO BID #6 TAB Ref 0 Prov:Magdaleno Odonnell MD 09/10/16 Disposition: 01 DISCHARGE HOME Condition: Good Magdaleno Odonnell MD September 10, 2016 10:59
[2016-09-10 11:28] LABS: BLOOD, URINE NEG (NEG); GLUCOSE,URINE NEG (NEG); KETONE, URINE NEG (NEG); NITRITE,URINE NEG (NEG)
[2016-09-10 11:34] LABS: METHOD OF COLLECTION CLEAN CATCH; URINE COLOR YELLOW (YELLW/STRAW)
[2016-09-10 11:35] LABS: BACTERIA, URINE MOD /hpf; COMMENT (UR) CULTURE INDICATED; COMMENT2 (UR) MUCOUS PRESENT; CULTURE IF INDICATED CULTURE INDICATED
[2016-09-10] MEDS ORDERED: CIPR-9 PO (11:48)
== END 2016-09-10 12:19 | disposition home or self-care (01) ==
LOC: PHEFT 10:33
DX: M54.5 Low back pain (principal); N39.0 Urinary tract infection, site not specified; B96.89 Other specified bacterial agents as the cause of diseases classified elsewhere
CPT/HCPCS: 81001; 87086; 99283

== ENCOUNTER 2017-05-14 15:15 | Emergency (ER) | payer BC, OTHER ==
[2017-05-14] MEDS: ACETAMINOPHEN/HYDROcodone 325 MG/5 MG TAB PO (17:26)
== END 2017-05-14 18:19 | disposition home or self-care (01) ==
LOC: PHEFT 15:15
DX: S82.64XA Nondisplaced fracture of lateral malleolus of right fibula, initial encounter for closed fracture (principal); X50.9XXA Other and unspecified overexertion or strenuous movements or postures, initial encounter; Z79.82 Long term (current) use of aspirin; Z98.2 Presence of cerebrospinal fluid drainage device
CPT/HCPCS: 29505; 73610; 73630; 99284-25